=== PATIENT | male | born 1975 ===

== ENCOUNTER 2017-02-17 07:20 | Emergency (ER) | payer OTHER ==
--- NOTE | 2017-02-17 07:31 | C.PDOC ---
History Of Present Illness 41-year-old male, is brought to the ED, picked up by EMS, after being found outside, intoxicated. The patient states he is homeless, and admits to drinking daily. Last drink was last night. States that he fell last night and skinned his knees. Patient is also complaining of two-day duration of left-sided chest pain. Pain is non-exertional, non-radiating and constant. Denies shortness of breath, nausea/vomiting, fevers, chills, dizziness, back pain, or any other associated symptoms. No other complaints at this time. Time Seen by Provider: 02/17/17 07:28 Chief Complaint (Nursing): Substance Abuse History Per: Patient, EMS History/Exam Limitations: no limitations Onset/Duration Of Symptoms: Days Current Symptoms Are (Timing): Still Present Severity: Moderate Past Medical History Reviewed: Historical Data, Nursing Documentation, Vital Signs Vital Signs: Last Vital Signs Temp 98.2 F 02/17/17 12:20 Pulse 81 02/17/17 12:20 Resp 16 02/17/17 12:20 BP 133/70 02/17/17 12:20 Pulse Ox 100 02/17/17 12:20 - Medical History PMH: HTN, Seizures - [facility] Procedures REPAIR TONGUE, EXTERNAL APPROACH (01/19/16) Family History: States: No Known Family Hx - Social History Hx Alcohol Use: Yes Hx Substance Use: No - Immunization History Hx Tetanus Toxoid Vaccination: No Hx Influenza Vaccination: No Hx Pneumococcal Vaccination: No Review Of Systems Constitutional: Negative for: Fever Cardiovascular: Positive for: Chest Pain Respiratory: Negative for: Shortness of Breath Gastrointestinal: Negative for: Vomiting Neurological: Negative for: Weakness, Numbness, Headache, Dizziness Physical Exam - Physical Exam Appears: Non-toxic, No Acute Distress Skin: Warm, Dry Head: Atraumatic, Normacephalic Eye(s): bilateral: PERRL, EOMI Oral Mucosa: Moist Tongue: No Swelling Lips: No Swelling, No Laceration Neck: Normal ROM, No Midline Cervical Tenderness Chest: No Tenderness Cardiovascular: Rhythm Regular, No Murmur Respiratory: Normal Breath Sounds, No Decreased Breath Sounds, No Accessory Muscle Use, No Rales, No Rhonchi, No Wheezing Gastrointestinal/Abdominal: Soft, No Tenderness Back: No Vertebral Tenderness Extremity: No Deformity, Other (Superficial abrasions to B/L knees w/ mild swelling over left patella. ROM WNL.) Pulses: Left Dorsalis Pedis: Normal, Right Dorsalis Pedis: Normal Neurological/Psych: Oriented x3, Normal Motor, Normal Sensation, Other (no focal deficits) ED Course And Treatment - Laboratory Results Result Diagrams: 02/17/17 08:10 02/17/17 08:10 - Radiology CXR: Interpreted by Me, Viewed By Me CXR Interpretation: Yes: No Acute Disease - CT Scan/US Left knee CT Other Rad Studies (CT/US): Read By Radiologist, Radiology Report Reviewed CT/US Interpretation: FINDINGS: Prepatellar, infrapatellar soft tissue swelling. Swelling is primarily midline and medially. Again note is made of 2 well corticated osseous excrescence is laterally. These are visualized on plain film radiographs is well. Small well corticated osseous excrescence is adjacent to the medial femoral condyles likely the sequela of prior trauma. IMPRESSION: Pre and peripatellar soft tissue swelling. Well corticated osseous excrescence (2) adjacent to the lateral aspect of the patella. Although likely the sequela of prior trauma in the appropriate clinical setting acute fracture or Ree fracture should be considered. Medical Decision Making Medical Decision Making: EKG Rate 75bpm Rhythm NSR Interpret Normal [place]. Normal intervals. No acute ischemia. knee immob crutches ortho follow up the pt is ambulatory with steady gait, a&ox3, clinically NOT intoxicated prior to dc. PROCEDURE: CT left knee HISTORY: fall knee pain abnormal xr COMPARISON: February 17, 2017. Plain film radiographs TECHNIQUE: 2.5 mm axial acquisition and display. Coronal and sagittal reconstructions. Dose report (mGy-cm): 584.80 3D volume rendering images. FINDINGS: Prepatellar, infrapatellar soft tissue swelling. Swelling is primarily midline and medially. Again note is made of 2 well corticated osseous excrescence is laterally. These are visualized on plain film radiographs is well. Small well corticated osseous excrescence is adjacent to the medial femoral condyles likely the sequela of prior trauma. IMPRESSION: Pre and peripatellar soft tissue swelling. Well corticated osseous excrescence (2) adjacent to the lateral aspect of the patella. Although likely the sequela of prior trauma in the appropriate clinical setting acute fracture or Ree fracture should be considered. Disposition - Disposition Referrals: [facility] [Outside] Jabier Sherwood MD [Staff Provider] - Disposition: HOME/ ROUTINE Disposition Time: 11:37 Condition: STABLE Additional Instructions: Please follow up in the clinic and also with the orthopedic doctor. Return to the ER for any worsening symptoms or for any other concerns. Forms: Gen Discharge Inst Indonesian Print Language: BENGALI - Clinical Impression Clinical Impression: Alcohol abuse, Knee injury - Scribe Statement The provider has reviewed the documentation as recorded by the Beto Ortiz All medical record entries made by the Malikaibluzma were at my direction and personally dictated by me. I have reviewed the chart and agree that the record accurately reflects my personal performance of the history, physical exam, medical decision making, and the department course for this patient. I have also personally directed, reviewed, and agree with the discharge instructions and disposition.
[2017-02-17 07:35] VITALS: RESP 16
[2017-02-17 08:20] LABS: BASO # 0.1 K/uL (0.0-0.2); EOS # 0.1 K/uL (0.0-0.7); EOS % 0.8 % (0.0-4.0); HEMATOCRIT 34.2 % (35.0-51.0); LYMPH # 0.8 K/uL (1.0-4.3); LYMPH % 13.3 % (20.0-40.0); MEAN CELL VOLUME 91.5 fL (80.0-94.0); MEAN CORPUSCULAR HEMOGLOBIN 30.7 pg (27.0-31.0); MEAN CORPUSCULAR HGB CONC 33.6 g/dL (33.0-37.0); MEAN PLATELET VOLUME 9.2 fL (7.2-11.7); MONO # 0.4 K/uL (0.0-0.8); MONO % 6.7 % (0.0-10.0); RED CELL DISTRIBUTION WIDTH 14.5 % (11.5-14.5); WHITE BLOOD COUNT 6.4 K/uL (4.8-10.8)
[2017-02-17 08:22] LABS: CHLORIDE 94 mmol/L (98-107)
[2017-02-17 08:23] LABS: POTASSIUM 3.3 mmol/L (3.6-5.2); SODIUM 133 mmol/L (132-148)
[2017-02-17 08:25] LABS: ALB/GLOB RATIO 1.4 (1.0-2.1); AST/SGOT 154 U/L (17-59); BILIRUBIN,TOTAL 0.8 mg/dL (0.2-1.3); CARBON DIOXIDE 27 mmol/L (22-30); GFR AFRICAN-AMERICAN > 60; TOTAL PROTEIN 7.5 g/dL (6.3-8.3)
[2017-02-17 08:26] LABS: ALKALINE PHOSPHATASE 125 U/L (38-126); ALT/SGPT 88 U/L (21-72); BLOOD UREA NITROGEN 10 mg/dL (9-20); CALCIUM 8.7 mg/dl (8.6-10.4); GLUCOSE,RANDOM 159 mg/dL (75-110)
--- NOTE | 2017-02-17 09:47 | RAD ---
HISTORY: Chest pain. Portable semi erect 07:45. COMPARISON: 06/26/2016. FINDINGS: LUNGS: No active pulmonary disease. PLEURA: No significant pleural effusion identified, no pneumothorax apparent. CARDIOVASCULAR: Normal. OSSEOUS STRUCTURES: No significant abnormalities. VISUALIZED UPPER ABDOMEN: Normal. OTHER FINDINGS: None. IMPRESSION: No active disease. No significant interval change compared to the prior examination(s).
--- NOTE | 2017-02-17 09:49 | RAD ---
PROCEDURE: Left Knee Radiographs. HISTORY: Pain. COMPARISON: None. FINDINGS: BONES: No acute fracture. Well corticated osseous structures adjacent to the main patella/bipartite patella. Small osseous fragment well corticated 2 x 4 mm adjacent to the medial femoral condyles. JOINTS: Normal. No osteoarthritis. JOINT EFFUSION: None. OTHER FINDINGS: Prepatellar soft tissue swelling. IMPRESSION: Soft tissue swelling without acute articular or osseous abnormality. 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 Specifically to smaller well corticated osseous fragments adjacent to the lateral aspect of the patella. If these findings are discordant with at clinically suspected CT is the recommended procedure of choice to exclude patellar fracture.
--- NOTE | 2017-02-17 11:38 | CT ---
PROCEDURE: CT left knee HISTORY: fall knee pain abnormal xr COMPARISON: February 17, 2017. Plain film radiographs TECHNIQUE: 2.5 mm axial acquisition and display. Coronal and sagittal reconstructions. Dose report (mGy-cm): 584.80 3D volume rendering images. FINDINGS: Prepatellar, infrapatellar soft tissue swelling. Swelling is primarily midline and medially. Again note is made of 2 well corticated osseous excrescence is laterally. These are visualized on plain film radiographs is well. Small well corticated osseous excrescence is adjacent to the medial femoral condyles likely the sequela of prior trauma. IMPRESSION: Pre and peripatellar soft tissue swelling. Well corticated osseous excrescence (2) adjacent to the lateral aspect of the patella. Although likely the sequela of prior trauma in the appropriate clinical setting acute fracture or Ree fracture should be considered.
[2017-02-17 12:21] VITALS: BP 133/70; PULSE 81; TEMP 98.2; O2SAT 100
--- NOTE | 2017-02-20 12:21 | CARD ---
APPROVED REPORT EKG Measurement Heart [id number] <Conclusion> Normal sinus rhythm Normal ECG
== END 2017-02-17 12:20 | disposition home or self-care (01) ==
LOC: C.ER 07:20
DX: F10.10 Alcohol abuse, uncomplicated (principal); Y90.9 Presence of alcohol in blood, level not specified; S89.92XA Unspecified injury of left lower leg, initial encounter; S89.91XA Unspecified injury of right lower leg, initial encounter; W19.XXXA Unspecified fall, initial encounter; Y93.9 Activity, unspecified; Y92.9 Unspecified place or not applicable

== ENCOUNTER 2017-02-17 14:57 | Emergency (ER) | payer OTHER ==
[2017-02-17 15:04] VITALS: BMI 24.1
[2017-02-17 15:07] VITALS: O2SAT 96
[2017-02-17] MEDS ORDERED: Lidocaine 2% Inj (20ml) INFIL ONE (15:31)
[2017-02-17] MEDS ORDERED: Lidocaine 2% Inj (20ml) ONE (15:34)
--- NOTE | 2017-02-17 15:51 | C.PDOC ---
History Of Present Illness The patient, a 41 y/o male, was recently discharge from [facility] after being evaluated for acute alcohol intoxication. Patient has now returned to the ED stating "On my way home, I tripped over my knee immobilizer, fell, and bit my tongue." Patient notes some bleeding from his tongue and is constantly spitting up bloody sputum. Otherwise, patient denies LOC, syncope, headache, vision change, drooling, trismus, neck pain, nausea, vomiting, denies deformity or pain to B?L UEs and LEs. Ambulate to ED, knee immobilizer noted to Right knee, not in any apparent distress.. Time Seen by Provider: 02/17/17 15:11 Chief Complaint (Nursing): Abnormal Skin Integrity History Per: Patient History/Exam Limitations: no limitations Onset/Duration Of Symptoms: Hrs Current Symptoms Are (Timing): Still Present Quality Of Symptoms: Painful Additional History Per: Patient Past Medical History Reviewed: Historical Data, Nursing Documentation, Vital Signs Vital Signs: Last Vital Signs Temp 98 F 02/17/17 16:05 Pulse 97 H 02/17/17 16:05 Resp 20 02/17/17 16:05 BP 136/86 02/17/17 16:05 Pulse Ox 96 02/17/17 16:29 - Medical History PMH: HTN, Seizures Surgical History: No Surg Hx - [facility] Procedures REPAIR TONGUE, EXTERNAL APPROACH (01/19/16) Family History: States: Unknown Family Hx - Social History Hx Alcohol Use: Yes Hx Substance Use: No - Immunization History Hx Tetanus Toxoid Vaccination: No Hx Influenza Vaccination: No Hx Pneumococcal Vaccination: No Review Of Systems Except As Marked, All Systems Reviewed And Found Negative. Eyes: Negative for: Vision Change ENT: Positive for: Other (+accidental bite to tongue with some bleeding noted) Gastrointestinal: Negative for: Vomiting Musculoskeletal: Negative for: Neck Pain Physical Exam - Physical Exam Appears: Well, Non-toxic, No Acute Distress Skin: Normal Color, Warm, No Rash Head: Atraumatic, Normacephalic Eye(s): bilateral: PERRL Ear(s): Bilateral: Normal Nose: No Discharge, No Epistaxis, No Deformity, No Tenderness Oral Mucosa: Moist, No Drooling, No Trismus Tongue: Laceration (Left side mid 1/3 tongue C-shape laceration 1cm length, mild bloody oozing noted.) Lips: Normal Appearing Teeth: Caries Gingiva: No Abscess Throat: No Erythema, No Exudate, No Drooling Neck: Supple Extremity: No Pedal Edema, Other (Right knee immobilizer noted) Neurological/Psych: Oriented x3, Normal Speech, Normal Motor, Normal Sensation, Normal Reflexes ED Course And Treatment O2 Sat by Pulse Oximetry: 96 (on RA) Pulse Ox Interpretation: Normal Progress Note: On re-eavluation, pt is afebrile, hemodynamicaly stable. AAO#3, not in any apaprent distress. Ambulatory in ED with stable gait. Head: AT/NC. ENT: laceration to tongue noted, repaired w/sutures. Neck: (-) midline tenderness. Neurologicaly intact. Laceration repaired. Abx given. tetanus UTD. Pt advised on wound care. Advised OBS 48 hours for any sign of head injury-return to ED at any time if any new changes or any sign of infection. ref. to F/u with PMD and ENT in 2-3 days for re-eavl. Laceration - Laceration Repair Tongue laceration Wound Length (In cm): 1cm Description Of Wound: Irregular (C-shape) Anesthesia: Lidocaine 2% Wound Examination: Irrigated With Saline, No FB With Wound Exploration Wound Closure: Suture (#3) Suture Technique And Material Used: Interrupted, Chromic (4-0) Wound Complexity: Simple Disposition Counseled Patient/Family Regarding: Diagnosis, Need For Followup - Disposition Referrals: [facility] [Outside] Disposition: HOME/ ROUTINE Disposition Time: 15:51 Condition: STABLE Additional Instructions: Oral hygiene, wash mouth with Listerine Follow up with PMD or ED in 2 days for wound check. return to ED if any worsening or new changes. Prescriptions: Amoxicillin/Clavulanate [Augmentin 875 MG-125 MG] 1 tab PO BID #14 tab Instructions: Care For Your Absorbable Stitches (ED), Facial Laceration (ED) - Clinical Impression Clinical Impression: Tongue laceration - PA / CHEF CONCIERGE / Resident Statement MD/DO has reviewed & agrees with the documentation as recorded. - Scribe Statement The provider has reviewed the documentation as recorded by the Scribe (Evelin Doyle) All medical record entries made by the Scribe were at my direction and personally dictated by me. I have reviewed the chart and agree that the record accurately reflects my personal performance of the history, physical exam, medical decision making, and the department course for this patient. I have also personally directed, reviewed, and agree with the discharge instructions and disposition.
[2017-02-17] MEDS ORDERED: Amoxicillin-Clav 875-125 mg Tab PO STA (15:56)
[2017-02-17] MEDS ORDERED: Amoxicillin-Clav 875-125 mg Tab PO ONE (16:00)
[2017-02-17 16:06] VITALS: BP 136/86; PULSE 97; RESP 20; TEMP 98
== END 2017-02-17 16:06 | disposition home or self-care (01) ==
LOC: C.ER 14:57
DX: S01.512A Laceration without foreign body of oral cavity, initial encounter (principal); W01.0XXA Fall on same level from slipping, tripping and stumbling without subsequent striking against object, initial encounter; Y93.89 Activity, other specified; Y92.89 Other specified places as the place of occurrence of the external cause

== ENCOUNTER 2017-04-23 08:59 | Observation (INO) | payer OTHER ==
[2017-04-23 08:59] VITALS: BMI 24.1
[2017-04-23] MEDS ORDERED: Multivitamin (MVI) 10 ML, Thiamine 100 MG, Folic Acid 1 MG in Sodium Chloride 0.9% 1,00... IV ONE (09:18)
[2017-04-23 09:47] LABS: BASO # 0.1 K/uL (0.0-0.2); BASO % 1.9 % (0.0-2.0); EOS # 0.1 K/uL (0.0-0.7); EOS % 0.8 % (0.0-4.0); HEMATOCRIT 36.5 % (35.0-51.0); LYMPH # 1.9 K/uL (1.0-4.3); LYMPH % 26.9 % (20.0-40.0); MEAN CORPUSCULAR HEMOGLOBIN 31.2 pg (27.0-31.0); MEAN CORPUSCULAR HGB CONC 32.9 g/dL (33.0-37.0); MEAN PLATELET VOLUME 9.1 fL (7.2-11.7); MONO # 0.6 K/uL (0.0-0.8); MONO % 8.1 % (0.0-10.0); NRBC % 0.1 % (0.0-2.0); RED CELL DISTRIBUTION WIDTH 14.4 % (11.5-14.5); WHITE BLOOD COUNT 7.2 K/uL (4.8-10.8)
[2017-04-23 09:49] LABS: MEAN CELL VOLUME 94.8 fL (80.0-94.0)
[2017-04-23 09:55] LABS: CHLORIDE 92 mmol/L (98-107); SODIUM 135 mmol/L (132-148)
[2017-04-23 09:56] LABS: POTASSIUM 3.2 mmol/L (3.6-5.2)
[2017-04-23 09:58] LABS: ALKALINE PHOSPHATASE 156 U/L (38-126); ALT/SGPT 57 U/L (21-72); AST/SGOT 125 U/L (17-59); BILIRUBIN,TOTAL 0.9 mg/dL (0.2-1.3); BLOOD UREA NITROGEN 6 mg/dL (9-20); CARBON DIOXIDE 16 mmol/L (22-30); GFR AFRICAN-AMERICAN > 60; GLUCOSE,RANDOM 159 mg/dL (75-110); TOTAL PROTEIN 8.5 g/dL (6.3-8.3)
[2017-04-23 09:59] LABS: ALCOHOL SERUM < 10 mg/dl (0-10); CALCIUM 8.9 mg/dl (8.6-10.4)
--- NOTE | 2017-04-23 11:02 | C.PDOC ---
History Of Present Illness 41 y/o male brought to ED by EMS for public ETOH intoxication and complaints of headache. At ED patient states he feels tremulous and admits to drinking today. Pain is rated a 2/10 and denies fever, chills, n/v/d or any other complaints at this time. Time Seen by Provider: 04/23/17 09:17 Chief Complaint (Nursing): Substance Abuse History Per: Patient, EMS History/Exam Limitations: intoxication Onset/Duration Of Symptoms: Hrs Current Symptoms Are (Timing): Still Present Modifying Factor(s): Alcohol Past Medical History Reviewed: Historical Data, Nursing Documentation, Vital Signs Vital Signs: Last Vital Signs Temp 98.6 F 04/23/17 18:41 Pulse 79 04/23/17 18:41 Resp 16 04/23/17 18:41 BP 137/84 04/23/17 18:41 Pulse Ox 99 04/23/17 18:41 - Medical History PMH: HTN, Seizures - [facility] Procedures REPAIR TONGUE, EXTERNAL APPROACH (01/19/16) Family History: States: Unknown Family Hx - Social History Hx Alcohol Use: Yes Hx Substance Use: No - Immunization History Hx Tetanus Toxoid Vaccination: No Hx Influenza Vaccination: No Hx Pneumococcal Vaccination: No Review Of Systems Except As Marked, All Systems Reviewed And Found Negative. Constitutional: Negative for: Fever, Chills Gastrointestinal: Negative for: Nausea, Vomiting, Diarrhea Neurological: Positive for: Headache Physical Exam - Physical Exam Appears: Unkempt, Other (Cooperative, disheveled, Malodorous ) Skin: Warm Head: Atraumatic, Normacephalic Eye(s): bilateral: Normal Inspection, EOMI Oral Mucosa: Moist Throat: Normal, No Erythema Respiratory: Normal Breath Sounds, No Rales, No Rhonchi, No Wheezing Extremity: Capillary Refill (<2 seconds), Other (Tremors to both hands) Neurological/Psych: Oriented x3 Gait: Unsteady ED Course And Treatment - Laboratory Results Result Diagrams: 04/23/17 09:41 04/23/17 09:41 O2 Sat by Pulse Oximetry: 95 (RA) ED OBSERVATION Date of observation admission: 04/23/17 Time of observation admission: 11:01 - Observation admission statement Patient is being placed in observation because:: ETOH Intoxication - Goals of Observation Goals of observation are:: Patient still symptomatic. - Progress Note Progress Note: 04/23/17 11:02 patient still symptomatic 04/23/17 15:50 Patient evaluated, very tremulous, unable to ambulate. 04/23/17 18:44 patient awake, alert, ambulating Disposition - Disposition Disposition: HOME/ ROUTINE Disposition Time: 18:44 Condition: GUARDED - Clinical Impression Clinical Impression: Alcohol abuse - Scribe Statement The provider has reviewed the documentation as recorded by the Beto Macdonald All medical record entries made by the Beto were at my direction and personally dictated by me. I have reviewed the chart and agree that the record accurately reflects my personal performance of the history, physical exam, medical decision making, and the department course for this patient. I have also personally directed, reviewed, and agree with the discharge instructions and disposition.
[2017-04-23 12:59] LABS: URINE BILIRUBIN NEGATIVE (NEGATIVE); URINE BLOOD 1+ (NEGATIVE); URINE COLOR Yellow (YELLOW); URINE GLUCOSE (UA) 1+ mg/dL (Normal); URINE KETONE TRACE mg/dL (NEGATIVE); URINE LEUKOCYTE ESTERASE TRACE Leu/uL (Negative); URINE PROTEIN 2+ mg/dL (NEGATIVE); URINE UROBILINOGEN NORMAL mg/dL (0.2-1.0); WBC URINE 1 /hpf (0-5)
[2017-04-23 13:24] LABS: RBC URINE 1 /hpf (0-3); URINE BACTERIA RARE (<OCC)
[2017-04-23 18:42] VITALS: BP 137/84; PULSE 79; RESP 16; TEMP 98.6
[2017-04-23 18:45] VITALS: O2SAT 95
== END 2017-04-23 18:48 | disposition home or self-care (01) ==
LOC: C.ER 08:59 → C.9OBSV 10:36
PROVIDERS: ADMIT Emergency Medicine; ATTEND Emergency Medicine
DX: F10.129 Alcohol abuse with intoxication, unspecified (principal); I10 Essential (primary) hypertension; Y90.9 Presence of alcohol in blood, level not specified
CPT/HCPCS: 80053; 81001; 85025; 96365; 96366; 96375; 96376; 99285; G0378; G0480; J2060; J3411; J7040

== ENCOUNTER 2017-07-05 22:18 | Inpatient (IN) | payer MEDICAID, OTHER ==
[2017-07-05 22:19] VITALS: BMI 24.1
--- NOTE | 2017-07-05 23:02 | C.PDOC ---
History Of Present Illness 42 year old male who presents to the ER with a complaint of intermittent chest pain since approximately 15:00, associated with pain on respiration. Denies ETOH use today, fever, or chills. Time Seen by Provider: 07/05/17 23:00 Chief Complaint (Nursing): Chest Pain History Per: Patient History/Exam Limitations: no limitations Onset/Duration Of Symptoms: Hrs Current Symptoms Are (Timing): Still Present Associated Symptoms: Other (Pain w/ respiration). denies: Nausea, Dyspnea, Diaphoresis, Syncope Modifying Factors: None Exacerbating Factors: None Alleviating Factors: None Recent travel outside of the [place]: No Past Medical History Reviewed: Historical Data, Nursing Documentation, Vital Signs Vital Signs: Last Vital Signs Temp 97.3 F L 07/06/17 05:00 Pulse 67 07/06/17 04:30 Resp 16 07/06/17 04:30 BP 112/74 07/06/17 04:30 Pulse Ox 99 07/06/17 04:40 - Medical History PMH: HTN, Seizures Surgical History: No Surg Hx - [facility] Procedures REPAIR TONGUE, EXTERNAL APPROACH (01/19/16) Family History: States: Unknown Family Hx - Social History Hx Alcohol Use: Yes Hx Substance Use: No - Immunization History Hx Tetanus Toxoid Vaccination: No Hx Influenza Vaccination: No Hx Pneumococcal Vaccination: No Review Of Systems Constitutional: Negative for: Fever, Chills Cardiovascular: Positive for: Chest Pain Respiratory: Positive for: Other (Pain with respiration). Negative for: Cough Gastrointestinal: Negative for: Nausea, Vomiting Skin: Negative for: Rash Physical Exam - Physical Exam Appears: Non-toxic, Unkempt Skin: Normal Color, Warm, Dry Head: Atraumatic, Normacephalic Oral Mucosa: Moist Neck: Normal, No Supple Chest: Symmetrical Cardiovascular: Rhythm Regular Respiratory: Normal Breath Sounds, No Rales, No Rhonchi, No Wheezing Gastrointestinal/Abdominal: Soft, No Tenderness Neurological/Psych: Oriented x3, Normal Speech, Normal Cognition, Other ( Tremulous) ED Course And Treatment - Laboratory Results Result Diagrams: 07/05/17 23:10 07/05/17 23:10 ECG: Interpreted By Me, Viewed By Me ECG Rhythm: Sinus Rhythm ECG Interpretation: Normal Rate From EC O2 Sat by Pulse Oximetry: 99 (Room air) Pulse Ox Interpretation: Normal Progress Note: While awaiting labs pt became increasingly agitated,more tremulous.Began having visual hallucination.I am concerned pt is going into DT's Medical Decision Making Medical Decision Making: Plan: * EKG * CXR * Blood work * Ativan Disposition - Disposition Disposition: HOSPITALIZED Disposition Time: 01:35 Condition: SERIOUS - Clinical Impression Clinical Impression: Alcohol withdrawal delirium - Scribe Statement The provider has reviewed the documentation as recorded by the Scribe Gerhard French All medical record entries made by the Malikaibe were at my direction and personally dictated by me. I have reviewed the chart and agree that the record accurately reflects my personal performance of the history, physical exam, medical decision making, and the department course for this patient. I have also personally directed, reviewed, and agree with the discharge instructions and disposition.
[2017-07-05 23:13] LABS: BASO # 0.1 K/uL (0.0-0.2); BASO % 1.6 % (0.0-2.0); EOS # 0.2 K/uL (0.0-0.7); HEMATOCRIT 36.4 % (35.0-51.0); LYMPH # 1.8 K/uL (1.0-4.3); LYMPH % 30.7 % (20.0-40.0); MEAN CORPUSCULAR HEMOGLOBIN 31.5 pg (27.0-31.0); MEAN CORPUSCULAR HGB CONC 33.5 g/dL (33.0-37.0); MEAN PLATELET VOLUME 9.2 fL (7.2-11.7); MONO # 0.6 K/uL (0.0-0.8); MONO % 10.3 % (0.0-10.0); NRBC % 0.1 % (0.0-2.0); RED CELL DISTRIBUTION WIDTH 13.5 % (11.5-14.5); WHITE BLOOD COUNT 5.9 K/uL (4.8-10.8)
[2017-07-05 23:22] LABS: CHLORIDE 101 mmol/L (98-107)
[2017-07-05 23:23] LABS: POTASSIUM 4.1 mmol/L (3.6-5.2); SODIUM 135 mmol/L (132-148)
[2017-07-05 23:25] LABS: BILIRUBIN,TOTAL 0.9 mg/dL (0.2-1.3); CARBON DIOXIDE 21 mmol/L (22-30); GFR AFRICAN-AMERICAN > 60
[2017-07-05 23:26] LABS: ALKALINE PHOSPHATASE 157 U/L (38-126); ALT/SGPT 117 U/L (21-72); AST/SGOT 181 U/L (17-59); BLOOD UREA NITROGEN 13 mg/dL (9-20); CALCIUM 9.1 mg/dl (8.6-10.4); GLUCOSE,RANDOM 127 mg/dL (75-110); TOTAL PROTEIN 9.2 g/dL (6.3-8.3)
[2017-07-06] MEDS ORDERED: Sodium Chloride 0.9% 1,000 ML IV ONE (01:14)
[2017-07-06] MEDS ORDERED: Folic Acid 1 MG, Thiamine 100 MG, Multivitamin (MVI) 10 ML in Dextrose 5% In Water 1,00... IV SCH (01:30)
[2017-07-06] MEDS ORDERED: Folic Acid 1 MG, Thiamine 100 MG, Multivitamin (MVI) 10 ML in Dextrose 5% In Water 1,00... IV ONE (01:45)
[2017-07-06 02:06] LABS: URINE BILIRUBIN NEGATIVE (NEGATIVE); URINE BLOOD NEGATIVE (NEGATIVE); URINE COLOR Yellow (YELLOW); URINE GLUCOSE (UA) NORMAL (Normal); URINE KETONE NEGATIVE (NEGATIVE); URINE LEUKOCYTE ESTERASE NEG Leu/uL (Negative); URINE PROTEIN 2+ mg/dL (NEGATIVE); WBC URINE < 1 /hpf (0-5)
[2017-07-06] MEDS ORDERED: Thiamine 100 mg/ml Inj IV ONE (03:05)
[2017-07-06] MEDS: Dexmedetomidine Hydrochloride 200 MCG in Sodium Chloride 0.9% 48 ML IV PRN ×2 (03:37→13:57)
--- NOTE | 2017-07-06 03:39 | CP.PCM.CON ---
History of Present Illness - History of Present Illness History of Present Illness: 42 M with h/o alcoholism, came to ER walking c/o some chest pain. Patient was noticed to be tremulous and soon mental status got worse, patient was severely tremulous, having hallucinations, tachycardic, hypertensive, sweating, needed 4 point restraint in ER. Patient received 10mg iv ativan since arrival in ER with no response. Patient was given 5mg additional iv ativan by me without significant response in next 10 minutes. PMH of alcohol withdrawal, epistaxis PSH/allergies/FH/ Social history cannot be obtained Review of Systems - Review of Systems All systems: reviewed and no additional remarkable complaints except (HPI) Past Patient History - Infectious Disease Hx of Infectious Diseases: None - Past Social History Alcohol: > 2 Drinks/Day Drugs: Other (unknown) - CARDIAC Hx Hypertension: Yes - NEUROLOGICAL Hx Seizures: Yes - MUSCULOSKELETAL/RHEUMATOLOGICAL Hx Falls: No - PSYCHIATRIC Hx Substance Use: No - SURGICAL HISTORY Hx Surgeries: Yes Other/Comment: Abdominal Sx - ANESTHESIA Hx Anesthesia: Yes Hx Anesthesia Reactions: No Meds Allergies/Adverse Reactions: Allergies Allergy/AdvReac Type Severity Reaction Status Date / Time No Known Allergies Allergy Verified 04/23/17 09:14 - Medications Medications: Current Medications Folic Acid 1 mg/ Thiamine HCl 100 mg/ Multivitamins/Vitamin C 10 ml/ Dextrose 1 ,011.2 mls @ 100 mls/hr IV .Q10H7M ONE Stop: 07/06/17 11:51 Last Admin: 07/06/17 01:54 Dose: 100 mls/hr Dexmedetomidine HCl 200 mcg/ (Sodium Chloride) 50 mls @ 3.17 mls/hr IV TITR PRN ; Protocol; 0.2 MCG/KG/HR PRN Reason: Agitation Sodium Chloride (Sodium Chloride 0.9%) 1,000 mls @ 150 mls/hr IV .Q6H40M [facility] Ondansetron HCl (Zofran Inj) 4 mg IVP DAILY@ONCE PRN PRN Reason: Nausea/Vomiting Pantoprazole Sodium (Protonix Inj) 40 mg IVP DAILY [facility]ABLO Thiamine HCl (Vitamin B1 Inj) 100 mg IV DAILY [facility]RO PABLO Physical Exam - Additional Findings Additional findings: * HEENT JAE, diaphoresis * Neck supple * Chest Clear * CVS regular, tachycardia * PA soft, nt, bs present * Ext no edema * Skin lower turgor * [employer] full body tremors, awake but not able to focus, hallucinations Results - Vital Signs Recent Vital Signs: Last Vital Signs Temp 100.2 F H 07/05/17 22:37 Pulse 120 H 07/06/17 03:04 Resp 27 H 07/06/17 03:04 BP 122/84 07/06/17 03:04 Pulse Ox 99 07/06/17 03:04 - Labs Result Diagrams: 07/05/17 23:10 07/05/17 23:10 Labs: Laboratory Results - last 24 hr 07/05/17 07/05/17 07/05/17 22:51 23:10 23:10 WBC 5.9 RBC 3.87 L Hgb 12.2 Hct 36.4 MCV 94.0 MCH 31.5 H MCHC 33.5 RDW 13.5 Plt Count 155 MPV 9.2 Neut % (Auto) 53.4 Lymph % (Auto) 30.7 [place] % (Auto) 10.3 H Eos % (Auto) 4.0 Baso % (Auto) 1.6 Neut # 3.2 Lymph # 1.8 [place] # 0.6 Eos # 0.2 Baso # 0.1 Sodium 135 Potassium 4.1 Chloride 101 Carbon Dioxide 21 L Anion Gap 17 BUN 13 Creatinine 0.5 L Est GFR ( Amer) > 60 Est GFR (Non-Af Amer) > 60 POC Glucose (mg/dL) 137 H Random Glucose 127 H Calcium 9.1 Total Bilirubin 0.9 AST 181 H ALT 117 H D Alkaline Phosphatase 157 H Troponin I 0.0130 Total Protein 9.2 H Albumin 4.7 Globulin 4.5 H Albumin/Globulin Ratio 1.0 Urine Color Urine Clarity Urine pH Ur Specific [place] Urine Protein Urine Glucose (UA) Urine Ketones Urine Blood Urine Nitrate Urine Bilirubin Urine Urobilinogen Ur Leukocyte Esterase Urine WBC (Auto) Ur Squamous Epith Cells Urine Opiates Screen Urine Methadone Screen Ur Barbiturates Screen Ur Phencyclidine Scrn Ur Amphetamines Screen U Benzodiazepines Scrn U Oth Cocaine Metabols U Cannabinoids Screen Alcohol, Quantitative 07/05/17 07/06/17 07/06/17 23:56 01:57 01:57 WBC RBC Hgb Hct MCV MCH MCHC RDW Plt Count MPV Neut % (Auto) Lymph % (Auto) [place] % (Auto) Eos % (Auto) Baso % (Auto) Neut # Lymph # [place] # Eos # Baso # Sodium Potassium Chloride Carbon Dioxide Anion Gap BUN Creatinine Est GFR ( Amer) Est GFR (Non-Af Amer) POC Glucose (mg/dL) Random Glucose Calcium Total Bilirubin AST ALT Alkaline Phosphatase Troponin I Total Protein Albumin Globulin Albumin/Globulin Ratio Urine Color Yellow Urine Clarity Clear Urine pH 6.0 Ur Specific [place] 1.016 Urine Protein 2+ H Urine Glucose (UA) Normal Urine Ketones Negative Urine Blood Negative Urine Nitrate Negative Urine Bilirubin Negative Urine Urobilinogen 4.0 Ur Leukocyte Esterase Neg Urine WBC (Auto) < 1 Ur Squamous Epith Cells 4 Urine Opiates Screen Negative Urine Methadone Screen Negative Ur Barbiturates Screen Negative Ur Phencyclidine Scrn Negative Ur Amphetamines Screen Negative U Benzodiazepines Scrn Negative U Oth Cocaine Metabols Negative U Cannabinoids Screen Negative Alcohol, Quantitative < 10 07/06/17 02:21 WBC RBC Hgb Hct MCV MCH MCHC RDW Plt Count MPV Neut % (Auto) Lymph % (Auto) [place] % (Auto) Eos % (Auto) Baso % (Auto) Neut # Lymph # [place] # Eos # Baso # Sodium Potassium Chloride Carbon Dioxide Anion Gap BUN Creatinine Est GFR ( Amer) Est GFR (Non-Af Amer) POC Glucose (mg/dL) 93 Random Glucose Calcium Total Bilirubin AST ALT Alkaline Phosphatase Troponin I Total Protein Albumin Globulin Albumin/Globulin Ratio Urine Color Urine Clarity Urine pH Ur Specific [place] Urine Protein Urine Glucose (UA) Urine Ketones Urine Blood Urine Nitrate Urine Bilirubin Urine Urobilinogen Ur Leukocyte Esterase Urine WBC (Auto) Ur Squamous Epith Cells Urine Opiates Screen Urine Methadone Screen Ur Barbiturates Screen Ur Phencyclidine Scrn Ur Amphetamines Screen U Benzodiazepines Scrn U Oth Cocaine Metabols U Cannabinoids Screen Alcohol, Quantitative Assessment & Plan - Assessment and Plan (Free Text) Assessment: * Alcohol withdrawal DTs not responded to about 10mg of ativan last 2 hrs * Alcoholism * Clinical dehydration * Alcoholic hepatitis Plan: * Sedation with precedex * IV thiamine, hydration * Aspiration precautions * GI and DVT prophylaxis * Remove restraints as th patient is calm * Admit to icu. * See orders for detail.
[2017-07-06] MEDS ORDERED: Sodium Chloride 0.9% 1,000 ML ONE (03:56)
[2017-07-06] MEDS: Sodium Chloride 0.9% 1,000 ML IV SCH ×6 (03:57→23:00)
--- NOTE | 2017-07-06 04:11 | CP.PCM.HP ---
<Salvatore Herron - Last Filed: 07/06/17 04:03> History of Present Illness - History of Present Illness History of Present Illness: Medicine H/P CC: Alcohol W/d HPI: Patient is a 42yo male who came walking into the ER with complaining of chest pain that appeared diaphoretic and tremulous. Patient admitted to being a heavy drinker and stated his last drink was about 1 day ago. Patients quickly became altered/obtunded and was clearly hallucinating both visually and auditory. He would rarely respond appropriately to questions. He became restless and was trying to climb off the bed. After many attempts to calm the patient, 4 point restraints were placed for the patients safety. He was given a total of 10mg Ativan IV at 2mg increments with no response. The patient was then given a 5mg dose again with no response. The patient was put on a precedex drip which finally gave him some relief. The patient was transported to the ICU. ROS: Unable to be obtained PMH: Unable to be obtained PSH: Unable to be obtained FH: Unable to be obtained SH: admits to drinking alcohol Meds: Unable to be obtained All: Unable to be obtained Present on Admission - Present on Admission Any Indicators Present on Admission: No History of DVT/PE: No History of Uncontrolled Diabetes: No Urinary Catheter: No Decubitus Ulcer Present: No History Surgical Site Infection Following: None Review of Systems - Review of Systems Systems not reviewed;Unavailable: Altered Mental Status - Constitutional Constitutional: As Per HPI - EENT Eyes: As Per HPI Ears: As Per HPI Nose/Mouth/Throat: As Per HPI - Cardiovascular Cardiovascular: As Per HPI - Respiratory Respiratory: As Per HPI - Gastrointestinal Gastrointestinal: As Per HPI - Genitourinary Genitourinary: As Per HPI - Reproductive: Male Reproductive:Male: As Per HPI - Musculoskeletal Musculoskeletal: As Per HPI - Integumentary Integumentary: As Per HPI - Neurological Neurological: As Per HPI - Psychiatric Psychiatric: As Per HPI - Endocrine Endocrine: As Per HPI - Hematologic/Lymphatic Hematologic: As Per HPI Past Patient History - Infectious Disease Hx of Infectious Diseases: None - Past Social History Alcohol: > 2 Drinks/Day Drugs: Other (unknown) - CARDIAC Hx Hypertension: Yes - NEUROLOGICAL Hx Seizures: Yes - MUSCULOSKELETAL/RHEUMATOLOGICAL Hx Falls: No - PSYCHIATRIC Hx Substance Use: No - SURGICAL HISTORY Hx Surgeries: Yes Other/Comment: Abdominal Sx - ANESTHESIA Hx Anesthesia: Yes Hx Anesthesia Reactions: No Meds Allergies/Adverse Reactions: Allergies Allergy/AdvReac Type Severity Reaction Status Date / Time No Known Allergies Allergy Verified 04/23/17 09:14 Physical Exam - Constitutional Appears: In Acute Distress, Combative, Agitated - Head Exam Head Exam: ATRAUMATIC, NORMAL INSPECTION, NORMOCEPHALIC - Eye Exam Eye Exam: EOMI. absent: Nystagmus Pupil Exam: Mydriatic. absent: Fixed, Irregular, Unequal - ENT Exam ENT Exam: Mucous Membranes Dry - Respiratory Exam Respiratory Exam: Clear to Auscultation Bilateral, NORMAL BREATHING PATTERN - Cardiovascular Exam Cardiovascular Exam: Tachycardia, REGULAR RHYTHM - GI/Abdominal Exam GI & Abdominal Exam: Normal Bowel Sounds, Soft. absent: Distended, Tenderness - Extremities Exam Extremities exam: Negative for: joint swelling, tenderness - Neurological Exam Neurological exam: Altered Additional comments: full body tremors - Psychiatric Exam Psychiatric exam: Agitated Additional comments: visual and auditory hallucinations - Skin Skin Exam: Diaphoretic Results - Vital Signs Recent Vital Signs: Last Vital Signs Temp 98.5 F 07/06/17 03:45 Pulse 80 07/06/17 03:56 Resp 16 07/06/17 03:56 BP 118/83 07/06/17 03:56 Pulse Ox 96 07/06/17 03:56 - Labs Result Diagrams: 07/05/17 23:10 07/05/17 23:10 Labs: Laboratory Results - last 24 hr 07/05/17 07/05/17 07/05/17 22:51 23:10 23:10 WBC 5.9 RBC 3.87 L Hgb 12.2 Hct 36.4 MCV 94.0 MCH 31.5 H MCHC 33.5 RDW 13.5 Plt Count 155 MPV 9.2 Neut % (Auto) 53.4 Lymph % (Auto) 30.7 [place] % (Auto) 10.3 H Eos % (Auto) 4.0 Baso % (Auto) 1.6 Neut # 3.2 Lymph # 1.8 [place] # 0.6 Eos # 0.2 Baso # 0.1 Sodium 135 Potassium 4.1 Chloride 101 Carbon Dioxide 21 L Anion Gap 17 BUN 13 Creatinine 0.5 L Est GFR ( Amer) > 60 Est GFR (Non-Af Amer) > 60 POC Glucose (mg/dL) 137 H Random Glucose 127 H Calcium 9.1 Total Bilirubin 0.9 AST 181 H ALT 117 H D Alkaline Phosphatase 157 H Troponin I 0.0130 Total Protein 9.2 H Albumin 4.7 Globulin 4.5 H Albumin/Globulin Ratio 1.0 Urine Color Urine Clarity Urine pH Ur Specific [place] Urine Protein Urine Glucose (UA) Urine Ketones Urine Blood Urine Nitrate Urine Bilirubin Urine Urobilinogen Ur Leukocyte Esterase Urine WBC (Auto) Ur Squamous Epith Cells Urine Opiates Screen Urine Methadone Screen Ur Barbiturates Screen Ur Phencyclidine Scrn Ur Amphetamines Screen U Benzodiazepines Scrn U Oth Cocaine Metabols U Cannabinoids Screen Alcohol, Quantitative 07/05/17 07/06/17 07/06/17 23:56 01:57 01:57 WBC RBC Hgb Hct MCV MCH MCHC RDW Plt Count MPV Neut % (Auto) Lymph % (Auto) [place] % (Auto) Eos % (Auto) Baso % (Auto) Neut # Lymph # [place] # Eos # Baso # Sodium Potassium Chloride Carbon Dioxide Anion Gap BUN Creatinine Est GFR ( Amer) Est GFR (Non-Af Amer) POC Glucose (mg/dL) Random Glucose Calcium Total Bilirubin AST ALT Alkaline Phosphatase Troponin I Total Protein Albumin Globulin Albumin/Globulin Ratio Urine Color Yellow Urine Clarity Clear Urine pH 6.0 Ur Specific [place] 1.016 Urine Protein 2+ H Urine Glucose (UA) Normal Urine Ketones Negative Urine Blood Negative Urine Nitrate Negative Urine Bilirubin Negative Urine Urobilinogen 4.0 Ur Leukocyte Esterase Neg Urine WBC (Auto) < 1 Ur Squamous Epith Cells 4 Urine Opiates Screen Negative Urine Methadone Screen Negative Ur Barbiturates Screen Negative Ur Phencyclidine Scrn Negative Ur Amphetamines Screen Negative U Benzodiazepines Scrn Negative U Oth Cocaine Metabols Negative U Cannabinoids Screen Negative Alcohol, Quantitative < 10 07/06/17 02:21 WBC RBC Hgb Hct MCV MCH MCHC RDW Plt Count MPV Neut % (Auto) Lymph % (Auto) [place] % (Auto) Eos % (Auto) Baso % (Auto) Neut # Lymph # [place] # Eos # Baso # Sodium Potassium Chloride Carbon Dioxide Anion Gap BUN Creatinine Est GFR ( Amer) Est GFR (Non-Af Amer) POC Glucose (mg/dL) 93 Random Glucose Calcium Total Bilirubin AST ALT Alkaline Phosphatase Troponin I Total Protein Albumin Globulin Albumin/Globulin Ratio Urine Color Urine Clarity Urine pH Ur Specific [place] Urine Protein Urine Glucose (UA) Urine Ketones Urine Blood Urine Nitrate Urine Bilirubin Urine Urobilinogen Ur Leukocyte Esterase Urine WBC (Auto) Ur Squamous Epith Cells Urine Opiates Screen Urine Methadone Screen Ur Barbiturates Screen Ur Phencyclidine Scrn Ur Amphetamines Screen U Benzodiazepines Scrn U Oth Cocaine Metabols U Cannabinoids Screen Alcohol, Quantitative Assessment & Plan - Assessment and Plan (Free Text) Assessment: Alcohol withdrawal DTs * not responded to about 10mg of ativan last 2 hrs * Sedation with precedex * 0.7 mcg/kg - titrate as needed to maintain sedation * IV thiamine, hydration * Aspiration precautions * Remove restraints as the patient is calm * Admit to icu. Alcoholism * IV thiamine, hydration Clinical dehydration * IV thiamine, hydration Alcoholic hepatitis PPx * Aspiration precautions * GI and DVT prophylaxis - Date & Time Date: 07/06/17 Time: 04:14 <Rodolfo Tavera - Last Filed: 07/06/17 06:29> Results - Vital Signs Recent Vital Signs: Last Vital Signs Temp 97.3 F L 07/06/17 05:00 Pulse 67 07/06/17 04:30 Resp 16 07/06/17 04:30 BP 112/74 07/06/17 04:30 Pulse Ox 99 07/06/17 05:14 - Labs Result Diagrams: 07/05/17 23:10 07/05/17 23:10 Labs: Laboratory Results - last 24 hr 07/05/17 07/05/17 07/05/17 22:51 23:10 23:10 WBC 5.9 RBC 3.87 L Hgb 12.2 Hct 36.4 MCV 94.0 MCH 31.5 H MCHC 33.5 RDW 13.5 Plt Count 155 MPV 9.2 Neut % (Auto) 53.4 Lymph % (Auto) 30.7 [place] % (Auto) 10.3 H Eos % (Auto) 4.0 Baso % (Auto) 1.6 Neut # 3.2 Lymph # 1.8 [place] # 0.6 Eos # 0.2 Baso # 0.1 Sodium 135 Potassium 4.1 Chloride 101 Carbon Dioxide 21 L Anion Gap 17 BUN 13 Creatinine 0.5 L Est GFR ( Amer) > 60 Est GFR (Non-Af Amer) > 60 POC Glucose (mg/dL) 137 H Random Glucose 127 H Calcium 9.1 Total Bilirubin 0.9 AST 181 H ALT 117 H D Alkaline Phosphatase 157 H Troponin I 0.0130 Total Protein 9.2 H Albumin 4.7 Globulin 4.5 H Albumin/Globulin Ratio 1.0 Urine Color Urine Clarity Urine pH Ur Specific [place] Urine Protein Urine Glucose (UA) Urine Ketones Urine Blood Urine Nitrate Urine Bilirubin Urine Urobilinogen Ur Leukocyte Esterase Urine WBC (Auto) Ur Squamous Epith Cells Urine Opiates Screen Urine Methadone Screen Ur Barbiturates Screen Ur Phencyclidine Scrn Ur Amphetamines Screen U Benzodiazepines Scrn U Oth Cocaine Metabols U Cannabinoids Screen Alcohol, Quantitative 07/05/17 07/06/17 07/06/17 23:56 01:57 01:57 WBC RBC Hgb Hct MCV MCH MCHC RDW Plt Count MPV Neut % (Auto) Lymph % (Auto) [place] % (Auto) Eos % (Auto) Baso % (Auto) Neut # Lymph # [place] # Eos # Baso # Sodium Potassium Chloride Carbon Dioxide Anion Gap BUN Creatinine Est GFR ( Amer) Est GFR (Non-Af Amer) POC Glucose (mg/dL) Random Glucose Calcium Total Bilirubin AST ALT Alkaline Phosphatase Troponin I Total Protein Albumin Globulin Albumin/Globulin Ratio Urine Color Yellow Urine Clarity Clear Urine pH 6.0 Ur Specific [place] 1.016 Urine Protein 2+ H Urine Glucose (UA) Normal Urine Ketones Negative Urine Blood Negative Urine Nitrate Negative Urine Bilirubin Negative Urine Urobilinogen 4.0 Ur Leukocyte Esterase Neg Urine WBC (Auto) < 1 Ur Squamous Epith Cells 4 Urine Opiates Screen Negative Urine Methadone Screen Negative Ur Barbiturates Screen Negative Ur Phencyclidine Scrn Negative Ur Amphetamines Screen Negative U Benzodiazepines Scrn Negative U Oth Cocaine Metabols Negative U Cannabinoids Screen Negative Alcohol, Quantitative < 10 07/06/17 02:21 WBC RBC Hgb Hct MCV MCH MCHC RDW Plt Count MPV Neut % (Auto) Lymph % (Auto) [place] % (Auto) Eos % (Auto) Baso % (Auto) Neut # Lymph # [place] # Eos # Baso # Sodium Potassium Chloride Carbon Dioxide Anion Gap BUN Creatinine Est GFR ( Amer) Est GFR (Non-Af Amer) POC Glucose (mg/dL) 93 Random Glucose Calcium Total Bilirubin AST ALT Alkaline Phosphatase Troponin I Total Protein Albumin Globulin Albumin/Globulin Ratio Urine Color Urine Clarity Urine pH Ur Specific [place] Urine Protein Urine Glucose (UA) Urine Ketones Urine Blood Urine Nitrate Urine Bilirubin Urine Urobilinogen Ur Leukocyte Esterase Urine WBC (Auto) Ur Squamous Epith Cells Urine Opiates Screen Urine Methadone Screen Ur Barbiturates Screen Ur Phencyclidine Scrn Ur Amphetamines Screen U Benzodiazepines Scrn U Oth Cocaine Metabols U Cannabinoids Screen Alcohol, Quantitative Assessment & Plan - Date & Time Date: 07/06/17 (I have seen and examined the patient. I agree with the findings and plan of care as documented by Dr. Herron. Patient with alcohol withdrawal with DTs. CIWA protocol with Ativan. Precedex added due to necessity. Thiamine and folate. IVF hydration. Fall and seizure precautions. Admit to ICU for close monitoring for acute changes.) Time: 06:27 Attending/Attestation - Attestation I have personally seen and examined this patient.: Yes I have fully participated in the care of the patient.: Yes I have reviewed all pertinent clinical information: Yes
--- NOTE | 2017-07-06 08:03 | RAD ---
PROCEDURE: CHEST RADIOGRAPH, 1 VIEW HISTORY: chest pain COMPARISON: None available. FINDINGS: LUNGS: Mild venous congestion. Mild patchy increased markings at the right lung base. PLEURA: No pneumothorax or pleural fluid seen. CARDIOVASCULAR: Normal. OSSEOUS STRUCTURES: No significant abnormalities. VISUALIZED UPPER ABDOMEN: Normal. OTHER FINDINGS: None. IMPRESSION: Mild venous congestion. Mild patchy increased markings at the right lung base.
[2017-07-06 09:44] LABS: BASO # 0.1 K/uL (0.0-0.2); BASO % 1.7 % (0.0-2.0); EOS # 0.2 K/uL (0.0-0.7); EOS % 5.5 % (0.0-4.0); HEMATOCRIT 35.3 % (35.0-51.0); LYMPH # 1.1 K/uL (1.0-4.3); LYMPH % 28.9 % (20.0-40.0); MEAN CELL VOLUME 94.1 fL (80.0-94.0); MEAN PLATELET VOLUME 8.9 fL (7.2-11.7); MONO # 0.4 K/uL (0.0-0.8); MONO % 10.5 % (0.0-10.0); NRBC % 0.1 % (0.0-2.0); RED CELL DISTRIBUTION WIDTH 13.8 % (11.5-14.5); WHITE BLOOD COUNT 3.8 K/uL (4.8-10.8)
[2017-07-06 10:10] LABS: CHLORIDE 107 mmol/L (98-107)
[2017-07-06 10:11] LABS: POTASSIUM 3.3 mmol/L (3.6-5.2); SODIUM 139 mmol/L (132-148)
[2017-07-06 10:13] LABS: ALKALINE PHOSPHATASE 93 U/L (38-126); ALT/SGPT 107 U/L (21-72); AST/SGOT 125 U/L (17-59); BILIRUBIN,TOTAL 0.8 mg/dL (0.2-1.3); BLOOD UREA NITROGEN 8 mg/dL (9-20); CARBON DIOXIDE 22 mmol/L (22-30); GFR AFRICAN-AMERICAN > 60; GLUCOSE,RANDOM 115 mg/dL (75-110); TOTAL PROTEIN 7.9 g/dL (6.3-8.3)
[2017-07-06 10:14] LABS: CALCIUM 8.5 mg/dl (8.6-10.4); MAGNESIUM 1.6 mg/dL (1.6-2.3); PHOSPHOROUS 4.4 mg/dL (2.5-4.5)
--- NOTE | 2017-07-06 11:14 | CT ---
PROCEDURE: CT HEAD WITHOUT CONTRAST. HISTORY: AMS COMPARISON: 06/26/2016 TECHNIQUE: Axial computed tomography images were obtained through the head/brain without intravenous contrast. Radiation dose: Total exam DLP = 982.82 mGy-cm. This CT exam was performed using one or more of the following dose reduction techniques: Automated exposure control, adjustment of the mA and/or kV according to patient size, and/or use of iterative reconstruction technique. FINDINGS: HEMORRHAGE: No intracranial hemorrhage. BRAIN: No mass effect or edema. No atrophy or chronic microvascular ischemic changes. VENTRICLES: Unremarkable. No hydrocephalus. CALVARIUM: Unremarkable. PARANASAL SINUSES: Mild chronic bilateral maxillary sinusitis. MASTOID AIR CELLS: Unremarkable as visualized. No inflammatory changes. OTHER FINDINGS: None. IMPRESSION: No intracranial mass, hemorrhage or evidence acute infarct. Mild bilateral chronic maxillary sinusitis. Otherwise unremarkable examination. On
[2017-07-06] MEDS: Magnesium Sulfate 1 gm in D5W 1 GM/100 ML BAG IVPB SCH ×2 (11:44→13:58)
--- NOTE | 2017-07-06 15:30 | CP.PCM.PN ---
Subjective - Date & Time of Evaluation Date of Evaluation: 07/06/17 Time of Evaluation: 13:00 - Subjective Subjective: Patient is arousable,trying to talk .able to tell his name.not to place and person. Objective - Vital Signs/Intake and Output Vital Signs (last 24 hours): Temp Pulse Resp BP Pulse Ox 97.3 F L 57 L 16 104/83 99 07/06/17 08:00 07/06/17 12:00 07/06/17 12:00 07/06/17 12:00 07/06/17 12:00 Intake and Output: 07/06/17 07/06/17 06:59 18:59 Intake Total 472.2 1556.3 Output Total 160 1170 Balance 312.2 386.3 - Medications Medications: Current Medications Chlordiazepoxide (Librium) 25 mg PO Q6 [facility]EDRO PABLO PRN Reason: Taper Stop: 07/10/17 17:59 Heparin Sodium (Porcine) (Heparin) 5,000 units SC Q12 [facility] Last Admin: 07/06/17 14:00 Dose: 5,000 units Dexmedetomidine HCl 200 mcg/ (Sodium Chloride) 50 mls @ 3.17 mls/hr IV TITR PRN ; Protocol; 0.2 MCG/KG/HR PRN Reason: Agitation Last Admin: 07/06/17 13:57 Dose: 0.4 mcg/kg/hr, 6.35 mls/hr Sodium Chloride (Sodium Chloride 0.9%) 1,000 mls @ 150 mls/hr IV .Q6H40M [facility] Last Admin: 07/06/17 11:41 Dose: 150 mls/hr Lorazepam (Ativan) 1 mg IVP Q4H PRN PRN Reason: Symptoms of alcohol withdrawl Ondansetron HCl (Zofran Inj) 4 mg IVP Q6 PRN PRN Reason: Nausea/Vomiting Pantoprazole Sodium (Protonix Inj) 40 mg IVP DAILY [facility] Last Admin: 07/06/17 10:31 Dose: 40 mg Thiamine HCl (Vitamin B1 Inj) 100 mg IV DAILY [facility] - Labs Labs: 07/06/17 09:36 07/06/17 09:36 - Constitutional Appears: Confused - Head Exam Head Exam: NORMAL INSPECTION - Eye Exam Eye Exam: Normal appearance - ENT Exam ENT Exam: Mucous Membranes Moist - Neck Exam Neck Exam: Normal Inspection - Respiratory Exam Respiratory Exam: Clear to Ausculation Bilateral, NORMAL BREATHING PATTERN - Cardiovascular Exam Cardiovascular Exam: REGULAR RHYTHM - GI/Abdominal Exam GI & Abdominal Exam: Soft, Normal Bowel Sounds - Exam External exam: NORMAL EXTERNAL EXAM - Extremities Exam Extremities Exam: Full ROM, Normal Capillary Refill. absent: Pedal Edema - Back Exam Back Exam: Full ROM, NORMAL INSPECTION - Neurological Exam Neurological Exam: Awake. absent: Oriented x3 - Psychiatric Exam Psychiatric exam: Flat Affect - Skin Skin Exam: Dry Assessment and Plan - Assessment and Plan (Free Text) Assessment: This is a 42 years old male with h/o alcoholism, came to ER walking with c/o some chest pain. Patient was noticed to be tremulous and soon mental status got worse.He became tachycardic, hypertensive, sweating,confused and hallucinating needed 4 point restraint in the ER. Patient received total of 15 mg iv ativan with no response. He was started on precedex and admitted to ICU by maintenance fitter last night. On examination he is with mittens restrain.Trying to answer questions but confused. Plan: 1. Alcohol DTs Continue precedex as per critical care continue librium and ativan PRN 2.Alcoholism and alcoholic hepatitis avoid nephrotoxic agents. 3.DVT prophylaxis-on heparin GI prophylaxis is on protonix 4.Hypokalemia-supplement
[2017-07-07] MEDS: Dexmedetomidine Hydrochloride 200 MCG in Sodium Chloride 0.9% 48 ML IV PRN
[2017-07-07] MEDS: Sodium Chloride 0.9% 1,000 ML IV SCH ×3 (05:00→12:35)
[2017-07-07 06:26] LABS: CHLORIDE 106 mmol/L (98-107)
[2017-07-07 06:27] LABS: BASO # 0.1 K/uL (0.0-0.2); BASO % 0.6 % (0.0-2.0); EOS # 0.2 K/uL (0.0-0.7); EOS % 1.5 % (0.0-4.0); HEMATOCRIT 33.4 % (35.0-51.0); LYMPH # 1.5 K/uL (1.0-4.3); LYMPH % 13.5 % (20.0-40.0); MEAN CELL VOLUME 93.6 fL (80.0-94.0); MEAN CORPUSCULAR HGB CONC 34.2 g/dL (33.0-37.0); MEAN PLATELET VOLUME 9.2 fL (7.2-11.7); MONO # 0.7 K/uL (0.0-0.8); MONO % 6.9 % (0.0-10.0); NRBC % 0.1 % (0.0-2.0); SODIUM 135 mmol/L (132-148); WHITE BLOOD COUNT 10.9 K/uL (4.8-10.8)
[2017-07-07 06:29] LABS: AST/SGOT 129 U/L (17-59); CARBON DIOXIDE 20 mmol/L (22-30); GFR AFRICAN-AMERICAN > 60
[2017-07-07 06:30] LABS: ALKALINE PHOSPHATASE 75 U/L (38-126); ALT/SGPT 78 U/L (21-72); BLOOD UREA NITROGEN 6 mg/dL (9-20); CALCIUM 7.9 mg/dl (8.6-10.4); GLUCOSE,RANDOM 80 mg/dL (75-110); MAGNESIUM 1.8 mg/dL (1.6-2.3); PHOSPHOROUS 3.7 mg/dL (2.5-4.5); TOTAL PROTEIN 8.3 g/dL (6.3-8.3)
[2017-07-07 06:37] LABS: POTASSIUM 5.7 mmol/L (3.6-5.2)
[2017-07-07 07:05] LABS: CHLORIDE 107 mmol/L (98-107); POTASSIUM 3.1 mmol/L (3.6-5.2); SODIUM 138 mmol/L (132-148)
[2017-07-07 07:08] LABS: BLOOD UREA NITROGEN 6 mg/dL (9-20); CARBON DIOXIDE 20 mmol/L (22-30); GFR AFRICAN-AMERICAN > 60
[2017-07-07 07:09] LABS: GLUCOSE,RANDOM 89 mg/dL (75-110)
--- NOTE | 2017-07-07 09:20 | CP.PCM.PN ---
Subjective - Date & Time of Evaluation Date of Evaluation: 07/07/17 Time of Evaluation: 08:30 - Subjective Subjective: No complain,Denies pain,alert oriented ,calm Objective - Vital Signs/Intake and Output Vital Signs (last 24 hours): Temp Pulse Resp BP Pulse Ox 98.5 F 53 L 15 125/74 99 07/07/17 04:00 07/07/17 06:20 07/07/17 06:20 07/07/17 05:52 07/07/17 06:20 Intake and Output: 07/07/17 07/07/17 06:59 18:59 Intake Total 1888 150 Output Total 1300 Balance 588 150 - Medications Medications: Current Medications Chlordiazepoxide (Librium) 25 mg PO Q6 [facility] PRN Reason: Taper Stop: 07/10/17 17:59 Last Admin: 07/07/17 06:19 Dose: 25 mg Folic Acid (Folic Acid) 1 mg PO DAILY [facility] Heparin Sodium (Porcine) (Heparin) 5,000 units SC Q12 [facility] Last Admin: 07/06/17 21:32 Dose: 5,000 units Sodium Chloride (Sodium Chloride 0.9%) 1,000 mls @ 150 mls/hr IV .Q6H40M [facility] Last Admin: 07/07/17 05:00 Dose: 150 mls/hr Potassium Chloride (Potassium Chloride 20 Meq/100 Ml) 20 meq in 100 mls @ 50 mls/hr IVPB ONCE ONE Stop: 07/07/17 10:27 Last Admin: 07/07/17 09:15 Dose: 50 mls/hr Lorazepam (Ativan) 1 mg IVP Q4H PRN PRN Reason: Symptoms of alcohol withdrawl Ondansetron HCl (Zofran Inj) 4 mg IVP Q6 PRN PRN Reason: Nausea/Vomiting Pantoprazole Sodium (Protonix Ec Tab) 40 mg PO DAILY [facility] Potassium Chloride (K-Dur 20 Meq Er Tab) 40 meq PO ONCE ONE Stop: 07/07/17 09:11 Thiamine HCl (Vitamin B1 Tab) 100 mg PO DAILY [facility] - Labs Labs: 07/07/17 06:13 07/07/17 06:44 - Constitutional Appears: Well, Non-toxic - Head Exam Head Exam: NORMAL INSPECTION - Eye Exam Eye Exam: Normal appearance Pupil Exam: NORMAL ACCOMODATION - ENT Exam ENT Exam: Mucous Membranes Moist - Neck Exam Neck Exam: Full ROM, Normal Inspection - Respiratory Exam Respiratory Exam: Clear to Ausculation Bilateral, NORMAL BREATHING PATTERN - Cardiovascular Exam Cardiovascular Exam: REGULAR RHYTHM - GI/Abdominal Exam GI & Abdominal Exam: Soft, Normal Bowel Sounds. absent: Tenderness - Extremities Exam Extremities Exam: Full ROM, Normal Capillary Refill, Normal Inspection - Back Exam Back Exam: NORMAL INSPECTION - Neurological Exam Neurological Exam: Oriented x3 - Psychiatric Exam Psychiatric exam: Normal Mood - Skin Skin Exam: Dry Assessment and Plan - Assessment and Plan (Free Text) Assessment: is is a 42 years old male with h/o alcoholism, came to ER walking with c/o some chest pain. Patient was noticed to be tremulous and soon mental status got worse.He became tachycardic, hypertensive, sweating,confused and hallucinating needed 4 point restraint in the ER. Patient received total of 15 mg iv ativan with no response. He was started on precedex and admitted to ICU Today he is off precedex.Calm and alert oriented x3 Plan: 1. Alcohol withdrawal DTs Improving,Off sedation continue librium and ativan PRN downgrade to tele 2.Alcohol abuse and alcoholic hepatitis avoid nephrotoxic agents.Hepatitis panel,Psychiatry consult 3.DVT prophylaxis-on heparin GI prophylaxis is on protonix 4.Aifrqxyhxmc-vtwgepcion-Lmsjzbdyky K 5.Alcohol abuse,denies drug use,denies h/o smoking-Advice to stop drinking
[2017-07-07] MEDS ORDERED: Potassium Chloride 20 mEq ER Tab PO ONE (09:30)
[2017-07-07] MEDS: Pantoprazole 40 mg EC Tab PO SCH (09:39)
[2017-07-07] MEDS ORDERED: Thiamine 100 mg/ml Inj IV SCH (10:00)
[2017-07-07] MEDS ORDERED: Pneumococcal 23-Valent Vaccine IM ONE (15:25)
[2017-07-07] MEDS ORDERED: Influenza Vaccine 60 mcg/0.5 mL SYR (4YR UP) IM ONE (15:25)
--- NOTE | 2017-07-08 07:12 | CP.PCM.PN ---
<Js Vanegas - Last Filed: 07/08/17 17:48> Subjective - Date & Time of Evaluation Date of Evaluation: 07/08/17 Time of Evaluation: 10:00 - Subjective Subjective: PGY-[address] Harvey Patient seen and examined at bedside. Patient states that he feels fine. Patient denies current fevers, chills, chest pain, dyspnea, abdominal pain, dysuria. Per nursing staff, patient was agitated and restless this morning before given Ativan. Objective - Vital Signs/Intake and Output Vital Signs (last 24 hours): Temp Pulse Resp BP Pulse Ox 99 F 63 20 148/90 97 07/07/17 23:30 07/07/17 23:30 07/07/17 23:30 07/07/17 23:30 07/07/17 23:30 Intake and Output: 07/08/17 07/08/17 06:59 18:59 Intake Total 610 Output Total 1450 Balance -840 - Medications Medications: Current Medications Chlordiazepoxide (Librium) 25 mg PO TID [facility] PRN Reason: Taper Stop: 07/10/17 17:59 Last Admin: 07/07/17 18:02 Dose: 25 mg Folic Acid (Folic Acid) 1 mg PO DAILY [facility] Last Admin: 07/07/17 09:39 Dose: 1 mg Heparin Sodium (Porcine) (Heparin) 5,000 units SC Q12 [facility] Last Admin: 07/07/17 21:47 Dose: 5,000 units Lorazepam (Ativan) 1 mg IVP Q4H PRN PRN Reason: Symptoms of alcohol withdrawl Last Admin: 07/07/17 23:41 Dose: 1 mg Ondansetron HCl (Zofran Inj) 4 mg IVP Q6 PRN PRN Reason: Nausea/Vomiting Pantoprazole Sodium (Protonix Ec Tab) 40 mg PO DAILY [facility] Last Admin: 07/07/17 09:39 Dose: 40 mg Thiamine HCl (Vitamin B1 Tab) 100 mg PO DAILY [facility] Last Admin: 07/07/17 09:39 Dose: 100 mg - Labs Labs: 07/07/17 06:13 07/07/17 06:44 - Constitutional Appears: No Acute Distress - Head Exam Head Exam: ATRAUMATIC, NORMOCEPHALIC - Eye Exam Eye Exam: EOMI, Normal appearance - ENT Exam ENT Exam: Mucous Membranes Moist - Respiratory Exam Respiratory Exam: Clear to Ausculation Bilateral. absent: Rales, Rhonchi, Wheezes - Cardiovascular Exam Cardiovascular Exam: REGULAR RHYTHM, +S1, +S2 - GI/Abdominal Exam GI & Abdominal Exam: Soft, Normal Bowel Sounds. absent: Tenderness - Extremities Exam Extremities Exam: absent: Calf Tenderness, Pedal Edema - Neurological Exam Neurological Exam: Alert, Awake, Oriented x3 - Psychiatric Exam Psychiatric exam: Anxious - Skin Skin Exam: Dry, Warm Assessment and Plan - Assessment and Plan (Free Text) Plan: Alcohol withdrawal, Delerium Tremens Not responding to 15 total mg of Ativan. Sedated on Precedex and taken to ICU. Improving. Taken off of precedex on 07/07/17 and downgraded to telemetry Continue Librium taper ending on 07/10/17 Ativan 1 mg IV Q4H prn Thiamine 100 mg PO daily Folic Acid 1 mg PO daily Psychiatry consult-Dr. Forman, help appreciated F/u Hepatitis panel Prophylactic Measures Protonix 40 mg PO daily Heparin 5000 units SC Q12 <Stanley Harvey - Last Filed: 07/08/17 21:06> Objective - Vital Signs/Intake and Output Vital Signs (last 24 hours): Temp Pulse Resp BP Pulse Ox 98.6 F 75 20 124/78 96 07/08/17 15:26 07/08/17 15:26 07/08/17 15:26 07/08/17 15:26 07/08/17 15:26 Intake and Output: 07/08/17 07/09/17 18:59 06:59 Intake Total 400 Balance 400 - Medications Medications: Current Medications Chlordiazepoxide (Librium) 25 mg PO BID [facility] PRN Reason: Taper Stop: 07/10/17 17:59 Last Admin: 07/08/17 18:06 Dose: 25 mg Folic Acid (Folic Acid) 1 mg PO DAILY [facility] Last Admin: 07/08/17 09:05 Dose: 1 mg Heparin Sodium (Porcine) (Heparin) 5,000 units SC Q12 [facility] Last Admin: 07/08/17 09:05 Dose: 5,000 units Lorazepam (Ativan) 1 mg IVP Q4H PRN PRN Reason: Symptoms of alcohol withdrawl Last Admin: 07/08/17 09:09 Dose: 1 mg Ondansetron HCl (Zofran Inj) 4 mg IVP Q6 PRN PRN Reason: Nausea/Vomiting Pantoprazole Sodium (Protonix Ec Tab) 40 mg PO DAILY [facility] Last Admin: 07/08/17 09:05 Dose: 40 mg Thiamine HCl (Vitamin B1 Tab) 100 mg PO DAILY [facility] Last Admin: 07/08/17 09:05 Dose: 100 mg - Labs Labs: 07/08/17 08:22 07/08/17 08:22 Attending/Attestation - Attestation I have personally seen and examined this patient.: Yes I have fully participated in the care of the patient.: Yes I have reviewed all pertinent clinical information, including history, physical exam and plan: Yes Notes (Text): Patient was seen and examined.Patient was agitated today.Ativan given continue taper librium and Ativan PRn Discussed with the resident .Agree with the assessment and plan 07/08/17 21:04
[2017-07-08 09:01] LABS: BASO % 0.6 % (0.0-2.0); EOS # 0.3 K/uL (0.0-0.7); HEMATOCRIT 35.4 % (35.0-51.0); LYMPH # 1.8 K/uL (1.0-4.3); MEAN CELL VOLUME 93.5 fL (80.0-94.0); MEAN CORPUSCULAR HEMOGLOBIN 31.8 pg (27.0-31.0); MEAN PLATELET VOLUME 8.7 fL (7.2-11.7); MONO % 13.8 % (0.0-10.0); NRBC % 0.2 % (0.0-2.0); RED CELL DISTRIBUTION WIDTH 13.8 % (11.5-14.5); WHITE BLOOD COUNT 7.1 K/uL (4.8-10.8)
[2017-07-08] MEDS: Pantoprazole 40 mg EC Tab PO SCH (09:05)
[2017-07-08 09:23] LABS: CHLORIDE 103 mmol/L (98-107); SODIUM 140 mmol/L (132-148)
[2017-07-08 09:24] LABS: POTASSIUM 3.4 mmol/L (3.6-5.2)
[2017-07-08 09:26] LABS: ALB/GLOB RATIO 0.9 (1.0-2.1); ALKALINE PHOSPHATASE 103 U/L (38-126); ALT/SGPT 83 U/L (21-72); AST/SGOT 66 U/L (17-59); BILIRUBIN,TOTAL 0.6 mg/dL (0.2-1.3); BLOOD UREA NITROGEN 10 mg/dL (9-20); CARBON DIOXIDE 25 mmol/L (22-30); GFR AFRICAN-AMERICAN > 60; GLUCOSE,RANDOM 97 mg/dL (75-110); TOTAL PROTEIN 7.9 g/dL (6.3-8.3)
[2017-07-08 09:27] LABS: CALCIUM 8.8 mg/dl (8.6-10.4); MAGNESIUM 1.7 mg/dL (1.6-2.3); PHOSPHOROUS 3.5 mg/dL (2.5-4.5)
[2017-07-08] MEDS ORDERED: Potassium Chloride 20 mEq ER Tab PO ONE (10:00)
[2017-07-09 06:34] LABS: BASO % 0.7 % (0.0-2.0); EOS # 0.3 K/uL (0.0-0.7); EOS % 5.2 % (0.0-4.0); HEMATOCRIT 34.8 % (35.0-51.0); LYMPH # 1.7 K/uL (1.0-4.3); LYMPH % 29.9 % (20.0-40.0); MEAN CELL VOLUME 93.5 fL (80.0-94.0); MEAN CORPUSCULAR HEMOGLOBIN 32.2 pg (27.0-31.0); MEAN CORPUSCULAR HGB CONC 34.4 g/dL (33.0-37.0); MEAN PLATELET VOLUME 8.3 fL (7.2-11.7); MONO % 18.4 % (0.0-10.0); NRBC % 0.3 % (0.0-2.0); WHITE BLOOD COUNT 5.6 K/uL (4.8-10.8)
[2017-07-09 07:34] LABS: CHLORIDE 103 mmol/L (98-107); POTASSIUM 3.7 mmol/L (3.6-5.2); SODIUM 136 mmol/L (132-148)
[2017-07-09 07:36] LABS: BILIRUBIN,TOTAL 0.6 mg/dL (0.2-1.3); GFR AFRICAN-AMERICAN > 60
[2017-07-09 07:37] LABS: ALKALINE PHOSPHATASE 98 U/L (38-126); ALT/SGPT 73 U/L (21-72); AST/SGOT 66 U/L (17-59); BLOOD UREA NITROGEN 12 mg/dL (9-20); CALCIUM 9.1 mg/dl (8.6-10.4); CARBON DIOXIDE 23 mmol/L (22-30); GLUCOSE,RANDOM 115 mg/dL (75-110); PHOSPHOROUS 4.4 mg/dL (2.5-4.5); TOTAL PROTEIN 7.7 g/dL (6.3-8.3)
[2017-07-09 07:38] LABS: MAGNESIUM 1.5 mg/dL (1.6-2.3)
[2017-07-09] MEDS: Pantoprazole 40 mg EC Tab PO SCH (09:16)
[2017-07-09] MEDS ORDERED: Magnesium Sulfate 1 gm in D5W 1 GM/100 ML BAG IVPB ONE (11:00)
[2017-07-09 12:44] LABS: THYROID STIMULATING HORMONE 3.08 mIU/L (0.46-4.68)
--- NOTE | 2017-07-09 12:47 | CARD ---
APPROVED REPORT EKG Measurement Heart [id number] <Conclusion> Normal sinus rhythm Normal ECG
--- NOTE | 2017-07-09 14:51 | PCM.PSYCH ---
Initial Psychiatric Evaluation - Initial Psychiatric Evaluation Type of Admission: Voluntary Legal Status: Capacity Chief Complaint (in patient's own words): "I feel alright right now" Psych consult called for pt's recent heavy alcohol use History of Present Illness and Precipitating Events: Pt is a 42 year old male with a PMH of HTN who presented to the ED 09/09 with the complaint of intermittent chest pain. He is , has two daughters aged 16 and 18, lives alone, and works in construction. His children and estranged live in [facility]. Psych called to consult with pt for recent heavy use of alcohol. He reports that he began drinking heavily over the past couple of weeks during which he drank 6-7 beers daily, up from his usual amount of 1 beer daily with dinner. He reports that he recently learned that his in [facility] left him for another man and sold two homes that they own together without consulting with him first. The stress of this situation precipitated his increased use of alcohol. He denies prior episodes of binging in the past. It is unclear whether pt is downplaying the severity of this episode because he continues to ask when he will be allowed to go home. He denies prior psych hx and a family history of psych or substance use disorders. He currently reports to feel well and denies symptoms of withdrawal. He denies visual and audio hallucinations, depression and SI. He is eating well and sleeping well. After care discussed. Pt would like to return to work after discharge. He is determined to stop drinking because he recognizes that it is not a healthy way to deal with the stress of his family situation. Will follow up later. Current Medications: Active Medications Generic Name Dose Route Start Last Admin Trade Name Kevinq PRN Reason Stop Dose Admin Chlordiazepoxide 25 mg 07/06/17 18:00 07/09/17 09:17 Librium PO 07/10/17 17:59 25 mg BID [facility] Administration Taper Folic Acid 1 mg 07/07/17 10:00 07/09/17 09:17 Folic Acid PO 1 mg DAILY [facility] Administration Lorazepam 1 mg 07/06/17 13:39 07/08/17 09:09 Ativan IVP 1 mg Q4H PRN Administration Symptoms of alcohol withdrawl Ondansetron HCl 4 mg 07/06/17 04:36 Zofran Inj IVP Q6 PRN Nausea/Vomiting Pantoprazole Sodium 40 mg 07/07/17 10:00 07/09/17 09:16 Protonix Ec Tab PO 40 mg DAILY [facility] Administration Thiamine HCl 100 mg 07/07/17 10:00 07/09/17 09:17 Vitamin B1 Tab PO 100 mg DAILY [facility] Administration Past Psychiatric History - Past Psychiatric History Previous Treatment History: None Pertinent Medical Hx (Current Medical&Sleep Prob, Allergies): Allergies Allergy/AdvReac Type Severity Reaction Status Date / Time No Known Allergies Allergy Verified 04/23/17 09:14 No Known Home Med 04/23/17 Review of Systems - Review of Systems All systems: reviewed and no additional remarkable complaints except - Neurological Neurological: absent: Tremor - Psychiatric Psychiatric: Anxiety. absent: Auditory Hallucinations, Depression, Suicidal Ideation, Visual Hallucinations Mental Status Examination - Personal Presentation Personal Presentation: Looks stated age - Affect Affect: Broad - Motor Activity Motor Activity: Calm - Reliability in Providing Information Reliability in Providing Information: Fair - Speech Speech: Organized, Relevant, Coherent - Mood Mood: Anxious - Formal Thought Process Formal Thought Process: No Impairment - Obsessions/Compulsions Obsessions: None Compulsions: None - Cognitive Functions Orientation: Person, Place, Situation, Time Sensorium: Alert Attention/Concentration: Attentive Estimate of Intelligence: Average Judgement: Intact, as evidence by: Insight regarding need for hospitalization Memory: Recent intact, as evidence by: Ability to recall events of the day, Remote intact, as evidenced by: Abilit to recall sig. life events - Risk Risk: Withdrawal - Strength & Assets Inventory Strength & Assets Inventory: Employment status, Cooperative - Limitations Limitations: Living alone DSM 5 DX - DSM 5 DSM 5 Diagnosis: Alcohol use disorder, severe Alcohol withdrawal - Recommended/Plan of Treatment Treatment Recommendations and Plan of Treatment: Librium taper As needed medications and vitamins Supportive therapy and psychoeducation [facility] for abstinence CBT for relapse prevention Refer to after care Prognosis: Good with treatment - Smoking Cessation Smoking Cessation Initiated: No
[2017-07-09 18:23] VITALS: RESP 20
--- NOTE | 2017-07-09 18:35 | CP.PCM.PN ---
Subjective - Date & Time of Evaluation Date of Evaluation: 07/09/17 Time of Evaluation: 07:45 - Subjective Subjective: Progress note for Dr. Santana PAtient seen and examined at bedside. patient had a short episode of bradycardia overnight while sleeping. No other acute events overnight. Patient denies tremors and walks to demonstrate he's ready to go home. Patient told his librium taper is to finish July 10. Patient denies fever, chills, nausea, vomiting, dizziness, headache, abdominal pain. Objective - Vital Signs/Intake and Output Vital Signs (last 24 hours): Temp Pulse Resp BP Pulse Ox 98.7 F 65 20 121/75 96 07/09/17 15:22 07/09/17 15:22 07/09/17 15:22 07/09/17 15:22 07/09/17 15:22 Intake and Output: 07/09/17 07/09/17 06:59 18:59 Intake Total 150 Output Total 650 Balance -500 - Medications Medications: Current Medications Chlordiazepoxide (Librium) 25 mg PO DAILY [facility] PRN Reason: Taper Stop: 07/10/17 17:59 Last Admin: 07/09/17 09:17 Dose: 25 mg Folic Acid (Folic Acid) 1 mg PO DAILY [facility] Last Admin: 07/09/17 09:17 Dose: 1 mg Lorazepam (Ativan) 1 mg IVP Q4H PRN PRN Reason: Symptoms of alcohol withdrawl Last Admin: 07/08/17 09:09 Dose: 1 mg Ondansetron HCl (Zofran Inj) 4 mg IVP Q6 PRN PRN Reason: Nausea/Vomiting Pantoprazole Sodium (Protonix Ec Tab) 40 mg PO DAILY [facility] Last Admin: 07/09/17 09:16 Dose: 40 mg Thiamine HCl (Vitamin B1 Tab) 100 mg PO DAILY [facility] Last Admin: 07/09/17 09:17 Dose: 100 mg - Labs Labs: 07/09/17 06:27 07/09/17 06:27 - Constitutional Appears: Non-toxic - Head Exam Head Exam: NORMAL INSPECTION - Eye Exam Eye Exam: EOMI, Normal appearance - ENT Exam ENT Exam: Mucous Membranes Moist - Neck Exam Neck Exam: Full ROM - Respiratory Exam Respiratory Exam: Clear to Ausculation Bilateral, NORMAL BREATHING PATTERN - Cardiovascular Exam Cardiovascular Exam: REGULAR RHYTHM, +S1, +S2 - GI/Abdominal Exam GI & Abdominal Exam: Soft. absent: Tenderness - Extremities Exam Extremities Exam: Full ROM, Normal Inspection. absent: Pedal Edema - Neurological Exam Neurological Exam: Alert, Awake, Normal Gait, Oriented x3 - Psychiatric Exam Psychiatric exam: Normal Affect, Normal Mood - Skin Skin Exam: Dry, Intact, Normal Color, Warm Assessment and Plan - Assessment and Plan (Free Text) Assessment: Alcohol withdrawal, Delerium Tremens on admission: Not responding to 15 total mg of Ativan. Sedated on Precedex and taken to ICU. Improving. Taken off of precedex on 07/07/17 and downgraded to telemetry Continue Librium taper ending on 07/10/17 Ativan 1 mg IV Q4H prn Thiamine 100 mg PO daily Folic Acid 1 mg PO daily Psychiatry consult-Dr. Forman F/u Hepatitis panel HIV 1 & 2 negative Urine tox screen negative Prophylaxis Protonix 40 mg PO daily Heparin 5000 units SC Q12 discuss with Dr. Mira Uribe, PGY1
[2017-07-10 08:14] LABS: BASO # 0.1 K/uL (0.0-0.2); BASO % 1.2 % (0.0-2.0); EOS # 0.3 K/uL (0.0-0.7); EOS % 4.5 % (0.0-4.0); HEMATOCRIT 36.8 % (35.0-51.0); LYMPH # 2.1 K/uL (1.0-4.3); MEAN CELL VOLUME 93.9 fL (80.0-94.0); MEAN CORPUSCULAR HEMOGLOBIN 31.9 pg (27.0-31.0); MEAN CORPUSCULAR HGB CONC 33.9 g/dL (33.0-37.0); MEAN PLATELET VOLUME 7.8 fL (7.2-11.7); MONO # 1.3 K/uL (0.0-0.8); MONO % 19.4 % (0.0-10.0); NRBC % 0.1 % (0.0-2.0); RED CELL DISTRIBUTION WIDTH 14.2 % (11.5-14.5); WHITE BLOOD COUNT 6.6 K/uL (4.8-10.8)
[2017-07-10 08:27] LABS: CHLORIDE 101 mmol/L (98-107)
[2017-07-10 08:28] LABS: SODIUM 139 mmol/L (132-148)
[2017-07-10 08:29] LABS: BILIRUBIN,TOTAL 0.5 mg/dL (0.2-1.3); GFR AFRICAN-AMERICAN > 60
[2017-07-10 08:30] LABS: ALB/GLOB RATIO 1.1 (1.0-2.1); ALKALINE PHOSPHATASE 112 U/L (38-126); ALT/SGPT 76 U/L (21-72); AST/SGOT 62 U/L (17-59); BLOOD UREA NITROGEN 14 mg/dL (9-20); CARBON DIOXIDE 25 mmol/L (22-30); GLUCOSE,RANDOM 134 mg/dL (75-110); TOTAL PROTEIN 8.3 g/dL (6.3-8.3)
[2017-07-10 08:31] LABS: CALCIUM 9.9 mg/dl (8.6-10.4); MAGNESIUM 1.3 mg/dL (1.6-2.3)
[2017-07-10] MEDS: Pantoprazole 40 mg EC Tab PO SCH (10:34)
[2017-07-10] MEDS: Magnesium Sulfate 1 gm in D5W 1 GM/100 ML BAG IVPB SCH ×2 (13:59→14:37)
--- NOTE | 2017-07-10 15:25 | CP.PCM.DIS ---
Provider - Provider Date of Admission: 07/06/17 01:36 Attending physician: Stanley Harvey MD Consults: Consults: Critical Care Consult: Dr. Chaney Psychiatry consult: Dr. Forman Time Spent in preparation of Discharge (in minutes): 35 Diagnosis - Discharge Diagnosis (1) Delirium tremens Status: Resolved Comment: patient was discharged after librium taper and was given information about alcoholics anonymous Hospital Course - Lab Results Lab Results: Micro Results 07/07/17 21:36 Naris MRSA Culture - Final MRSA NOT DETECTED 07/06/17 08:30 Nose MRSA Culture (Admit) - Final MRSA NOT DETECTED Most Recent Lab Values WBC 6.6 K/uL (4.8-10.8) 07/10/17 08:05 RBC 3.92 Mil/uL (4.40-5.90) L 07/10/17 08:05 Hgb 12.5 g/dL (12.0-18.0) 07/10/17 08:05 Hct 36.8 % (35.0-51.0) 07/10/17 08:05 MCV 93.9 fL (80.0-94.0) 07/10/17 08:05 MCH 31.9 pg (27.0-31.0) H 07/10/17 08:05 MCHC 33.9 g/dL (33.0-37.0) 07/10/17 08:05 RDW 14.2 % (11.5-14.5) 07/10/17 08:05 Plt Count 370 K/uL (130-400) D 07/10/17 08:05 MPV 7.8 fL (7.2-11.7) 07/10/17 08:05 Neut % (Auto) 43.9 % (50.0-75.0) L 07/10/17 08:05 Lymph % (Auto) 31.0 % (20.0-40.0) 07/10/17 08:05 Dickens % (Auto) 19.4 % (0.0-10.0) H 07/10/17 08:05 Eos % (Auto) 4.5 % (0.0-4.0) H 07/10/17 08:05 Baso % (Auto) 1.2 % (0.0-2.0) 07/10/17 08:05 Neut # 2.9 K/uL (1.8-7.0) 07/10/17 08:05 Lymph # 2.1 K/uL (1.0-4.3) 07/10/17 08:05 Dickens # 1.3 K/uL (0.0-0.8) H 07/10/17 08:05 Eos # 0.3 K/uL (0.0-0.7) 07/10/17 08:05 Baso # 0.1 K/uL (0.0-0.2) 07/10/17 08:05 Sodium 139 mmol/L (132-148) 07/10/17 08:05 Potassium 4.0 mmol/L (3.6-5.2) 07/10/17 08:05 Chloride 101 mmol/L (98-107) 07/10/17 08:05 Carbon Dioxide 25 mmol/L (22-30) 07/10/17 08:05 Anion Gap 17 (10-20) 07/10/17 08:05 BUN 14 mg/dL (9-20) 07/10/17 08:05 Creatinine 0.7 mg/dL (0.8-1.5) L 07/10/17 08:05 Est GFR ( Amer) > 60 07/10/17 08:05 Est GFR (Non-Af Amer) > 60 07/10/17 08:05 POC Glucose (mg/dL) 92 mg/dL (65-110) 07/07/17 07:44 Random Glucose 134 mg/dL (75-110) H 07/10/17 08:05 Calcium 9.9 mg/dl (8.6-10.4) 07/10/17 08:05 Phosphorus 5.0 mg/dL (2.5-4.5) H 07/10/17 08:05 Magnesium 1.3 mg/dL (1.6-2.3) L 07/10/17 08:05 Total Bilirubin 0.5 mg/dL (0.2-1.3) 07/10/17 08:05 AST 62 U/L (17-59) H 07/10/17 08:05 ALT 76 U/L (21-72) H 07/10/17 08:05 Alkaline Phosphatase 112 U/L (38-126) 07/10/17 08:05 Total Creatine Kinase 262 U/L (55-170) H 07/06/17 09:36 Troponin I 0.0190 ng/mL (0.00-0.120) 07/06/17 09:36 Total Protein 8.3 g/dL (6.3-8.3) 07/10/17 08:05 Albumin 4.3 g/dL (3.5-5.0) 07/10/17 08:05 Globulin 4.0 gm/dL (2.2-3.9) H 07/10/17 08:05 Albumin/Globulin Ratio 1.1 (1.0-2.1) 07/10/17 08:05 TSH 3rd Generation 3.08 mIU/L (0.46-4.68) 07/09/17 06:27 Urine Color Yellow (YELLOW) 07/06/17 01:57 Urine Clarity Clear (Clear) 07/06/17 01:57 Urine pH 6.0 (5.0-8.0) 07/06/17 01:57 Ur Specific [place] 1.016 (1.003-1.030) 07/06/17 01:57 Urine Protein 2+ mg/dL (NEGATIVE) H 07/06/17 01:57 Urine Glucose (UA) Normal mg/dL (Normal) 07/06/17 01:57 Urine Ketones Negative mg/dL (NEGATIVE) 07/06/17 01:57 Urine Blood Negative (NEGATIVE) 07/06/17 01:57 Urine Nitrate Negative (NEGATIVE) 07/06/17 01:57 Urine Bilirubin Negative (NEGATIVE) 07/06/17 01:57 Urine Urobilinogen 4.0 mg/dL (0.2-1.0) 07/06/17 01:57 Ur Leukocyte Esterase Neg Ubaldo/uL (Negative) 07/06/17 01:57 Urine WBC (Auto) < 1 /hpf (0-5) 07/06/17 01:57 Ur Squamous Epith Cells 4 /hpf (0-5) 07/06/17 01:57 Urine Opiates Screen Negative (NEGATIVE) 07/06/17 01:57 Urine Methadone Screen Negative (NEGATIVE) 07/06/17 01:57 Ur Barbiturates Screen Negative (NEGATIVE) 07/06/17 01:57 Ur Phencyclidine Scrn Negative (NEGATIVE) 07/06/17 01:57 Ur Amphetamines Screen Negative (NEGATIVE) 07/06/17 01:57 U Benzodiazepines Scrn Negative (NEGATIVE) 07/06/17 01:57 U Oth Cocaine Metabols Negative (NEGATIVE) 07/06/17 01:57 U Cannabinoids Screen Negative (NEGATIVE) 07/06/17 01:57 Alcohol, Quantitative < 10 mg/dl (0-10) 07/05/17 23:56 HIV 1&2 Antibody Screen Negative (NEGATIVE) 07/06/17 09:36 - Hospital Course Hospital Course: HPI Patient is a 42yo male who came walking into the ER with complaining of chest pain that appeared diaphoretic and tremulous. Patient admitted to being a heavy drinker and stated his last drink was about 1 day ago. Patients quickly became altered/obtunded and was clearly hallucinating both visually and auditory. He would rarely respond appropriately to questions. He became restless and was trying to climb off the bed. After many attempts to calm the patient, 4 point restraints were placed for the patients safety. He was given a total of 10mg Ativan IV at 2mg increments with no response. The patient was then given a 5mg dose again with no response. The patient was put on a precedex drip which finally gave him some relief. The patient was transported to the ICU. Hospital Course: Patient was initially brought to ICU for delerium trem and was placed on librium taper due to lack of response to 15 mg Ativan IVP. Patient was also placed on CIWA protocol. 07/06 Patient is arousable and was able to state his name, but did not know his location. Patient was moved up to the floor Patient was on librium taper with ativan for PRN use. Over the weekend, patient has non complaints and is more alert and oriented. Patient states he feels fine and did not have any complaints. The tremors were not visible. Patient states he can walk well. Gait was assessed . Patient told he has to finish librium taper set to finish by 07/10. During hospital stay , patient was encouraged to discontinue alcohol intake. Psychiatry saw patient and patient was noted to want to discontinue and admitted that it was an unhealthy way to deal with stressors in life. Consults: Critical Care Consult: Dr. Chaney Psychiatry consult: Dr. Forman Patient was discharged with instructions to: follow up with medical care at [facility] in 7 days Patient was also given information about Alcoholics Anonymous to continue support system for alcohol cessation. - Date & Time of H&P Date of H&P: 07/10/17 Time of H&P: 15:23 Discharge Exam - Head Exam Head Exam: NORMAL INSPECTION - Eye Exam Eye Exam: EOMI, Normal appearance - ENT Exam ENT Exam: Mucous Membranes Moist - Respiratory Exam Respiratory Exam: NORMAL BREATHING PATTERN. absent: Accessory Muscle Use, Respiratory Distress - Cardiovascular Exam Cardiovascular Exam: REGULAR RHYTHM, +S1, +S2 - GI/Abdominal Exam GI & Abdominal Exam: Soft. absent: Firm, Guarding, Tenderness - Neurological Exam Neurological exam: Alert, CN II-XII Intact, Normal Gait Additional comments: no tremors with outstretched hands - Psychiatric Exam Psychiatric exam: Normal Affect, Normal Mood - Skin Skin Exam: Dry, Intact, Warm Discharge Plan - Follow Up Plan Condition: FAIR Disposition: HOME/ ROUTINE Instructions: Alcohol Intoxication (DC), Abuse of Alcohol (DC) Additional Instructions: Patient is medically stable for discharge. Patient is to follow up with [facility] Floor B at [phone] in 7 days for general medical care follow up with AA meetings (list and information was given to you) return to ED if tremors, seizures, abdominal pain, nausea, vomiting Referrals: [facility] [Outside]
[2017-07-10 15:57] VITALS: BP 119/75; TEMP 98.4; O2SAT 96
[2017-07-10 16:01] VITALS: PULSE 72
== END 2017-07-10 18:38 | disposition home or self-care (01) | DRG 897 ==
LOC: C.ER 22:18 → C.9E 07-06 01:36 → C.9I 07-06 03:54 → C.6T 07-07 21:05
PROVIDERS: ADMIT Family Medicine; ATTEND Family Medicine
PROC: HZ2ZZZZ Detoxification Services for Substance Abuse Treatment (ICD-10-PCS; principal; 2017-07-06)
DX: F10.231 Alcohol dependence with withdrawal delirium (principal); F10.288 Alcohol dependence with other alcohol-induced disorder; K70.10 Alcoholic hepatitis without ascites; I10 Essential (primary) hypertension; E86.0 Dehydration; Z63.8 Other specified problems related to primary support group; R04.0 Epistaxis

== ENCOUNTER 2017-09-21 09:59 | Emergency (ER) | payer SELFPAY ==
[2017-09-21 10:00] VITALS: BMI 24.1
[2017-09-21 10:32] VITALS: BP 158/80; PULSE 90; RESP 20; TEMP 98.3; O2SAT 95
--- NOTE | 2017-09-21 10:50 | C.PDOC ---
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 Pt denies SI, HI, or any active physical complaints at this time. Chief Complaint (Nursing): Substance Abuse History Per: Patient History/Exam Limitations: no limitations Onset/Duration Of Symptoms: Gradual Current Symptoms Are (Timing): Still Present Suicide/Self Injury Attempted (Context): None Modifying Factor(s): Alcohol Severity: None Pain Scale Rating Of: 0 Associated Symptoms: denies: Suicidal Thoughts, Suicidal Plan Involuntary Hold By: None Recent travel outside of the [place]: No Additional History Per: EMS Past Medical History Reviewed: Historical Data, Nursing Documentation, Vital Signs Vital Signs: Last Vital Signs Temp 98.3 F 09/21/17 10:05 Pulse 90 09/21/17 10:05 Resp 20 09/21/17 10:05 BP 158/80 H 09/21/17 10:05 Pulse Ox 95 09/21/17 10:51 - Medical History PMH: HTN, Seizures Denies: Chronic Kidney Disease - [employer] Procedures DETOXIFICATION SERVICES FOR SUBSTANCE ABUSE TREATMENT (07/06/17) REPAIR TONGUE, EXTERNAL APPROACH (01/19/16) Family History: States: Unknown Family Hx - Social History Hx Alcohol Use: Yes Hx Substance Use: No - Immunization History Hx Tetanus Toxoid Vaccination: No Hx Influenza Vaccination: No Hx Pneumococcal Vaccination: No Review Of Systems Except As Marked, All Systems Reviewed And Found Negative. Constitutional: Negative for: Fever, Chills Cardiovascular: Negative for: Chest Pain, Palpitations Respiratory: Negative for: Cough, Shortness of Breath Gastrointestinal: Negative for: Nausea, Vomiting, Abdominal Pain Neurological: Negative for: Headache, Dizziness Psych: Negative for: Suicidal ideation Physical Exam - Physical Exam Appears: Non-toxic, No Acute Distress, Other ((+)EtOH on breath) Skin: Normal Color, Warm, Dry Head: Atraumatic, Normacephalic Eye(s): bilateral: Normal Inspection Oral Mucosa: Moist Cardiovascular: Rhythm Regular, No Murmur Respiratory: Normal Breath Sounds, No Rales, No Rhonchi, No Wheezing Gastrointestinal/Abdominal: Soft, No Tenderness Extremity: Bilateral: Atraumatic, Normal ROM Neurological/Psych: Oriented x3 ED Course And Treatment O2 Sat by Pulse Oximetry: 95 (RA) Pulse Ox Interpretation: Normal Disposition - Disposition Referrals: Alcoholics Anonymous [Outside] [facility] [Outside] [facility] [Outside] Disposition: HOME/ ROUTINE Disposition Time: 13:30 Condition: IMPROVED Additional Instructions: Thank you for letting us take care of you today. The emergency medical care you received today was directed at your acute symptoms. If you were prescribed any medication, please fill it and take as directed. It may take several days for your symptoms to resolve. Return to the Emergency Department if your symptoms worsen, do not improve, or if you have any other problems. Please contact your doctor or call one of the physicians/clinics you have been referred to that are listed on the Patient Visit Information form that is included in your discharge packet. Bring any paperwork you were given at discharge with you along with any medications you are taking to your follow up visit. Our treatment cannot replace ongoing medical care by a primary care provider (PCP) outside of the emergency department. Thank you for allowing the [facility] team to be part of your care today. Follow up with your doctor or the clinic in 3-5 days for re-evaluation and further management. Parvin por dejarnos atenderlo hoy. La atencin mdica de emergencia que recibi hoy estaba dirigida a kath sntomas agudos. Si le prescribieron algn medicamento, llnelo y tome segn las indicaciones. Kath sntomas pueden tardar varios gibson en resolverse. Regrese al Departamento de Emergencia si kath s ntomas empeoran, no mejoran o si tiene algn otro problema. Comunquese con laguerre mdico o llame a butch de los mdicos / clnicas a los que anguiano sido referido que figura en el formulario de Informacin de visita del paciente que se incluye en laguerre paquete de aileen. Traiga todos los documentos que recibi al momento del aileen junto con los medicamentos que est tomando en laguerre visita de seguimiento. Nuestro tratamiento no puede reemplazar la atencin mdica en curso por parte de un proveedor de atencin primaria (PCP) fuera del departamento de emergencias. Parvin por permitir que el equipo de [facility] sea parte de laguerre cuidado hoy. Jessie un seguimiento con laguerre mdico o la clnica en 3-5 gibson para keisha reevaluaci n y administracin adicional. Instructions: Alcohol Intoxication (ED) Forms: Gen Discharge Inst Gambian Print Language: GAMBIAN - Clinical Impression Clinical Impression: Alcohol abuse - Scribe Statement The provider has reviewed the documentation as recorded by the Scribe Hunter Doyle All medical record entries made by the Scribe were at my direction and personally dictated by me. I have reviewed the chart and agree that the record accurately reflects my personal performance of the history, physical exam, medical decision making, and the department course for this patient. I have also personally directed, reviewed, and agree with the discharge instructions and disposition.
== END 2017-09-21 14:57 | disposition home or self-care (01) ==
LOC: C.ER 09:59
DX: F10.10 Alcohol abuse, uncomplicated (principal); Y90.9 Presence of alcohol in blood, level not specified

== ENCOUNTER 2017-12-15 00:04 | Emergency (ER) | payer SELFPAY ==
[2017-12-15 00:05] VITALS: BMI 24.1
--- NOTE | 2017-12-15 01:04 | C.PDOC ---
History Of Present Illness 42 y/o male well known to the ER presents heavily intoxicated. Patient reports having left sided chest pain that is positional and worse with deep breaths. Denies fever, cough, or trauma. Patient is a poor historian due to inebriation. No other Hx available. Time Seen by Provider: 12/15/17 00:13 Chief Complaint (Nursing): Chest Pain History Per: Patient History/Exam Limitations: clinical condition, intoxication Onset/Duration Of Symptoms: Hrs Current Symptoms Are (Timing): Still Present Suicide/Self Injury Attempted (Context): None Modifying Factor(s): Alcohol Associated Symptoms: denies: Suicidal Thoughts, Suicidal Plan Involuntary Hold By: None Recent travel outside of the [place]: No Past Medical History Reviewed: Historical Data, Nursing Documentation, Vital Signs Vital Signs: Last Vital Signs Temp 97.6 F 12/15/17 05:22 Pulse 90 12/15/17 05:22 Resp 20 12/15/17 05:22 BP 132/90 12/15/17 05:22 Pulse Ox 96 12/15/17 05:22 - Medical History PMH: HTN, Seizures - [employer] Procedures DETOXIFICATION SERVICES FOR SUBSTANCE ABUSE TREATMENT (07/06/17) REPAIR TONGUE, EXTERNAL APPROACH (01/19/16) Family History: States: Unknown Family Hx - Social History Hx Alcohol Use: Yes Hx Substance Use: No - Immunization History Hx Tetanus Toxoid Vaccination: No Hx Influenza Vaccination: No Hx Pneumococcal Vaccination: No Review Of Systems Constitutional: Negative for: Fever, Chills Cardiovascular: Positive for: Chest Pain (left sided) Respiratory: Negative for: Cough, Shortness of Breath Gastrointestinal: Negative for: Nausea, Vomiting, Abdominal Pain, Diarrhea Neurological: Negative for: Weakness, Numbness Psych: Negative for: Suicidal ideation Physical Exam - Physical Exam Appears: Non-toxic, No Acute Distress, Other (somnolent bur arousable to verbal stimuli; no evidence of trauma ) Skin: Warm, Dry Head: Atraumatic, Normacephalic Eye(s): bilateral: Normal Inspection Oral Mucosa: Moist Neck: Supple Chest: Symmetrical, Other (Chestwall painful to palpation) Cardiovascular: Rhythm Regular Respiratory: Normal Breath Sounds, No Decreased Breath Sounds, No Rales, No Rhonchi, No Wheezing Gastrointestinal/Abdominal: Soft, No Tenderness, No Distention, No Guarding, No Rebound Extremity: Normal ROM, No Tenderness, No Pedal Edema, No Deformity, Other (no evidence of trauma) Extremity: Bilateral: Normal Color And Temperature, Normal ROM Pulses: Left Dorsalis Pedis: Normal, Right Dorsalis Pedis: Normal Neurological/Psych: Oriented x3, Normal Speech, Normal Cognition ED Course And Treatment O2 Sat by Pulse Oximetry: 96 (RA) Pulse Ox Interpretation: Normal Medical Decision Making Medical Decision Making: Impression: - Chest wall pain - Alcohol intoxication Plan - Will discharge when complete sobriety with frequent neuro checks EKG results: - Normal sinus rhythm at 76bpm - No ectopy - No acute ST changes - Normal EKG Disposition - Disposition Referrals: [facility] [Outside] Disposition: HOME/ ROUTINE Disposition Time: 07:13 Condition: GOOD Instructions: Alcohol Use - When Is Drinking a Problem? Forms: [facility] (Micronesian) Print Language: NEPALI - Clinical Impression Clinical Impression: Alcoholism - Scribe Statement The provider has reviewed the documentation as recorded by the Scribe Han Sanchez All medical record entries made by the Scribe were at my direction and personally dictated by me. I have reviewed the chart and agree that the record accurately reflects my personal performance of the history, physical exam, medical decision making, and the department course for this patient. I have also personally directed, reviewed, and agree with the discharge instructions and disposition.
[2017-12-15 03:42] VITALS: RESP 20; TEMP 97.6
[2017-12-15 05:24] VITALS: BP 132/90; PULSE 90; O2SAT 96
== END 2017-12-15 05:24 | disposition home or self-care (01) ==
LOC: C.ER 00:04
DX: F10.229 Alcohol dependence with intoxication, unspecified (principal); Y90.9 Presence of alcohol in blood, level not specified; R07.89 Other chest pain

== ENCOUNTER 2018-01-03 21:13 | Inpatient (IN) | payer OTHER ==
[2018-01-03 21:13] VITALS: BMI 24.1
[2018-01-03 22:30] LABS: BASO # 0.1 K/uL (0.0-0.2); BASO % 1.2 % (0.0-2.0); EOS # 0.3 K/uL (0.0-0.7); EOS % 4.5 % (0.0-4.0); LYMPH # 1.7 K/uL (1.0-4.3); LYMPH % 29.2 % (20.0-40.0); MEAN CELL VOLUME 92.4 fL (80.0-94.0); MEAN CORPUSCULAR HEMOGLOBIN 31.5 pg (27.0-31.0); MEAN PLATELET VOLUME 8.8 fL (7.2-11.7); MONO # 0.8 K/uL (0.0-0.8); MONO % 13.3 % (0.0-10.0); NEUT % 51.8 % (50.0-75.0); NRBC % 0.1 % (0.0-2.0); RBC 3.51 Mil/uL (4.40-5.90); RED CELL DISTRIBUTION WIDTH 14.3 % (11.5-14.5); WHITE BLOOD COUNT 5.8 K/uL (4.8-10.8)
[2018-01-03 22:43] LABS: CALCIUM 8.6 mg/dl (8.6-10.4); GFR AFRICAN-AMERICAN > 60; GFR NON-AFRICAN AMERICAN > 60; LIPASE 250 U/L (23-300)
[2018-01-03 22:46] LABS: ALBUMIN 4.2 g/dL (3.5-5.0); ALT/SGPT 42 U/L (21-72); AST/SGOT 106 U/L (17-59); BLOOD UREA NITROGEN 17 mg/dL (9-20)
[2018-01-03 22:54] LABS: B-TYPE NATRIURETIC PEPTIDE 123 pg/mL (0-450); CK-MB 2.07 ng/mL (0.0-3.38)
[2018-01-03 23:15] LABS: URINE BACTERIA RARE (<OCC); URINE BILIRUBIN NEGATIVE (NEGATIVE); URINE BLOOD NEGATIVE (NEGATIVE); URINE CLARITY Clear (Clear); URINE COLOR Yellow (YELLOW); URINE GLUCOSE (UA) NORMAL (Normal); URINE LEUKOCYTE ESTERASE NEG Leu/uL (Negative); URINE PROTEIN NEGATIVE (NEGATIVE)
[2018-01-03 23:26] LABS: BARBITURATES, UR NEGATIVE (NEGATIVE); BENZODIAZEPINES, UR NEGATIVE (NEGATIVE); OPIATES, UR NEGATIVE (NEGATIVE); PHENCYCLIDINE, UR NEGATIVE (NEGATIVE)
--- NOTE | 2018-01-04 00:28 | C.PDOC ---
History Of Present Illness Patient presents to ED c/o intermittent left sided chest pain for the past 1 week, worsening today. He states the pain is associated with mild SOB. He denies cough, fever, palpitations, abdominal pain, nausea/vomiting/diarrhea, dysuria. PMHx of HTN, alcohol dependence/abuse, seizures (alcohol withdrawal?). Time Seen by Provider: 01/03/18 21:48 Chief Complaint (Nursing): Chest Pain History Per: Patient History/Exam Limitations: no limitations Onset/Duration Of Symptoms: Days Current Symptoms Are (Timing): Worse Severity: Moderate Quality: "Pain" Associated Symptoms: Dyspnea. denies: Nausea, Diaphoresis, Syncope Past Medical History Reviewed: Historical Data, Nursing Documentation, Vital Signs Vital Signs: Last Vital Signs Temp 97.9 F 01/10/18 06:18 Pulse 86 01/10/18 06:18 Resp 18 01/10/18 06:18 BP 109/66 01/10/18 06:18 Pulse Ox 98 01/10/18 17:15 - Medical History PMH: HTN, Seizures - [employer] Procedures DETOXIFICATION SERVICES FOR SUBSTANCE ABUSE TREATMENT (07/06/17) REPAIR TONGUE, EXTERNAL APPROACH (01/19/16) Family History: States: No Known Family Hx - Social History Hx Alcohol Use: Yes Hx Substance Use: No - Immunization History Hx Tetanus Toxoid Vaccination: No Hx Influenza Vaccination: No Hx Pneumococcal Vaccination: No Review Of Systems Except As Marked, All Systems Reviewed And Found Negative. Constitutional: Negative for: Fever, Chills Cardiovascular: Positive for: Chest Pain. Negative for: Palpitations Respiratory: Positive for: Shortness of Breath. Negative for: Cough Gastrointestinal: Negative for: Nausea, Vomiting, Abdominal Pain, Diarrhea Genitourinary: Negative for: Dysuria, Hematuria Skin: Negative for: Rash Neurological: Negative for: Seizures, Headache, Dizziness Physical Exam - Physical Exam Appears: Well, Non-toxic, In Acute Distress (in mild pain, speaking in full sentences), Unkempt Skin: Normal Color, Warm, Dry, No Rash Head: Normacephalic Eye(s): bilateral: Normal Inspection Oral Mucosa: Moist Neck: Normal Chest: Tenderness (mild TTP left chest), No Ecchymosis, No Subcutaneous Emphysema Cardiovascular: Rhythm Regular, No Murmur Respiratory: Normal Breath Sounds, No Rales, No Rhonchi, No Wheezing Gastrointestinal/Abdominal: Normal Exam, Bowel Sounds, Soft, No Tenderness Extremity: Normal ROM, No Pedal Edema, No Calf Tenderness Pulses: Left Dorsalis Pedis: Normal, Right Dorsalis Pedis: Normal Neurological/Psych: Oriented x3 ED Course And Treatment - Laboratory Results Result Diagrams: 01/04/18 05:30 01/04/18 05:30 ECG: Interpreted By Me, Viewed By Me (NSR 75 bpm, normal axis, Q waves II, aVF, V4, V5, no acute ST changes, T wave inversion V6) ECG Interpretation: Abnormal O2 Sat by Pulse Oximetry: 98 (RA) Pulse Ox Interpretation: Normal - Radiology CXR: Interpreted by Me, Viewed By Me CXR Interpretation: Yes: No Acute Disease. No: Infiltrates Progress Note: Blood work, UA, UDS, EKG, CXR ordered and reviewed. Patient given PO ASA. - Physician Consult Information Physician Contacted: Rodolfo Tavera Outcome Of Conversation: Discussed patient with hospitalist, agrees with obs telemetry for chest pain, abnormal EKG, r/o ACS. Disposition - Disposition Disposition: HOSPITALIZED Disposition Time: 00:41 Condition: STABLE - Clinical Impression Clinical Impression: Chest pain, Abnormal EKG Decision To Admit - Pt Status Changed To: Hospital Disposition Of: Observation - . Bed Request Type: Telemetry Admitting Physician: Rodolfo Tavera Patient Diagnosis: Chest pain, Abnormal EKG
--- NOTE | 2018-01-04 01:48 | CP.PCM.HP ---
<Tone Serrato - Last Filed: 01/04/18 02:28> History of Present Illness - History of Present Illness History of Present Illness: CC: chest pain 42 year old male with history of alcohol abuse presents to the ED today complaining of chest pain. Patient reports his chest pain is located on his left chest. 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 The pain comes and goes then it became worse today which prompted the patient to come to the ED. He describes the pain sharp in quality, non radiating, worse with arm movement. 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 He did not take any medications for this pain. Patient also report to have a right ankle sprain which happened at work 1 week ago. Patient denies fever, chills, headache , shortness of breath, abdominal pain, nausea, vomiting, or diarrhea. PMD: none Allergies: no known drug allergies PMHx: alcohol abuse Surgical Hx: abdominal surgery s/p trauma/laceration Social Hx: Drinks 2 beers in during the weekend, last alcohol intake was last Sunday. Denies tobacco use, denies illicit drug use Family Hx: denies Meds: denies Present on Admission - Present on Admission Any Indicators Present on Admission: No Review of Systems - Constitutional Constitutional: As Per HPI. absent: Chills, Fever, Lethargy - EENT Eyes: As Per HPI. absent: Blurred Vision, Photophobia Ears: As Per HPI. absent: Ear Pain, Dizziness Nose/Mouth/Throat: As Per HPI. absent: Epistaxis, Nasal Obstruction, Nasal Trauma - Cardiovascular Cardiovascular: As Per HPI, Chest Pain, Chest Pain with Activity. absent: Diaphoresis, Dyspnea, Edema - Respiratory Respiratory: As Per HPI. absent: Cough, Dyspnea - Gastrointestinal Gastrointestinal: As Per HPI. absent: Abdominal Pain, Diarrhea, Nausea, Vomiting - Genitourinary Genitourinary: As Per HPI. absent: Urinary Frequency, Urinary Hesitance - Reproductive: Male Reproductive:Male: As Per HPI - Musculoskeletal Musculoskeletal: As Per HPI, Other (right ankle pain) - Integumentary Integumentary: As Per HPI. absent: Acne, Alopecia - Neurological Neurological: As Per HPI. absent: Dizziness, Numbness, Tremor - Psychiatric Psychiatric: As Per HPI. absent: Anxiety, Confusion, Depression - Endocrine Endocrine: As Per HPI. absent: Fatigue, Flushing - Hematologic/Lymphatic Hematologic: As Per HPI Past Patient History - Infectious Disease Hx of Infectious Diseases: None - Past Medical History & Family History Past Medical History?: Yes - Past Social History Smoking Status: Never Smoked - CARDIAC Hx Hypertension: Yes - PULMONARY Hx Respiratory Disorders: No - NEUROLOGICAL Hx Seizures: Yes - HEENT Hx HEENT Problems: No - RENAL Hx Chronic Kidney Disease: No - ENDOCRINE/METABOLIC Hx Endocrine Disorders: No - HEMATOLOGICAL/ONCOLOGICAL Hx Blood Disorders: No - INTEGUMENTARY Hx Dermatological Problems: No - MUSCULOSKELETAL/RHEUMATOLOGICAL Hx Musculoskeletal Disorders: No Hx Falls: No - GASTROINTESTINAL Hx Gastrointestinal Disorders: No - GENITOURINARY/GYNECOLOGICAL Hx Genitourinary Disorders: No - PSYCHIATRIC Hx Substance Use: No - SURGICAL HISTORY Hx Surgeries: Yes Other/Comment: Abdominal Sx - ANESTHESIA Hx Anesthesia: Yes Hx Anesthesia Reactions: No Hx Malignant Hyperthermia: No Meds Allergies/Adverse Reactions: Allergies Allergy/AdvReac Type Severity Reaction Status Date / Time No Known Allergies Allergy Verified 01/03/18 21:29 Physical Exam - Constitutional Appears: Non-toxic, No Acute Distress - Head Exam Head Exam: ATRAUMATIC, NORMOCEPHALIC - Eye Exam Eye Exam: EOMI, Normal appearance Pupil Exam: PERRL - ENT Exam ENT Exam: Mucous Membranes Moist - Neck Exam Neck exam: Positive for: Normal Inspection - Respiratory Exam Respiratory Exam: Clear to Auscultation Bilateral, NORMAL BREATHING PATTERN. absent: Wheezes, Respiratory Distress - Cardiovascular Exam Cardiovascular Exam: REGULAR RHYTHM, +S1, +S2 - GI/Abdominal Exam GI & Abdominal Exam: Normal Bowel Sounds, Soft. absent: Tenderness - Extremities Exam Extremities exam: Negative for: normal inspection (right ankle swelling, slight ecchymosis, able to bear weight) - Neurological Exam Neurological exam: Alert, Oriented x3 - Psychiatric Exam Psychiatric exam: Normal Affect, Normal Mood - Skin Skin Exam: Dry, Warm Results - Vital Signs Recent Vital Signs: Last Vital Signs Temp 97.8 F 01/04/18 01:30 Pulse 71 01/04/18 01:30 Resp 20 01/04/18 01:30 BP 148/84 01/04/18 01:30 Pulse Ox 98 01/04/18 01:30 - Labs Result Diagrams: 01/03/18 22:26 01/03/18 22:26 Labs: Laboratory Results - last 24 hr 01/03/18 01/03/18 01/03/18 22:26 22:26 23:07 WBC 5.8 RBC 3.51 L Hgb 11.0 L Hct 32.5 L MCV 92.4 MCH 31.5 H MCHC 34.0 RDW 14.3 Plt Count 200 D MPV 8.8 Neut % (Auto) 51.8 Lymph % (Auto) 29.2 [place] % (Auto) 13.3 H Eos % (Auto) 4.5 H Baso % (Auto) 1.2 Neut # (Auto) 3.0 Lymph # (Auto) 1.7 [place] # (Auto) 0.8 Eos # (Auto) 0.3 Baso # (Auto) 0.1 Sodium 136 Potassium 5.1 Chloride 102 Carbon Dioxide 22 Anion Gap 17 BUN 17 Creatinine 0.6 L Est GFR ( Amer) > 60 Est GFR (Non-Af Amer) > 60 POC Glucose (mg/dL) Random Glucose 115 H Calcium 8.6 Total Bilirubin 1.6 H AST 106 H D ALT 42 Alkaline Phosphatase 117 Total Creatine Kinase 333 H CK-MB (Mass) 2.07 Troponin I 0.0260 NT-Pro-B Natriuret Pep 123 Total Protein 8.4 H Albumin 4.2 Globulin 4.2 H Albumin/Globulin Ratio 1.0 Lipase 250 Urine Color Yellow Urine Clarity Clear Urine pH 6.0 Ur Specific [place] 1.015 Urine Protein Negative Urine Glucose (UA) Normal Urine Ketones Negative Urine Blood Negative Urine Nitrate Negative Urine Bilirubin Negative Urine Urobilinogen 2.0 Ur Leukocyte Esterase Neg Urine WBC (Auto) < 1 Urine RBC (Auto) < 1 Ur Transition Epith Cell < 1 Urine Bacteria Rare Urine Opiates Screen Urine Methadone Screen Ur Barbiturates Screen Ur Phencyclidine Scrn Ur Amphetamines Screen U Benzodiazepines Scrn U Oth Cocaine Metabols U Cannabinoids Screen Alcohol, Quantitative < 10 01/03/18 01/03/18 23:07 23:41 WBC RBC Hgb Hct MCV MCH MCHC RDW Plt Count MPV Neut % (Auto) Lymph % (Auto) [place] % (Auto) Eos % (Auto) Baso % (Auto) Neut # (Auto) Lymph # (Auto) [place] # (Auto) Eos # (Auto) Baso # (Auto) Sodium Potassium Chloride Carbon Dioxide Anion Gap BUN Creatinine Est GFR ( Amer) Est GFR (Non-Af Amer) POC Glucose (mg/dL) 109 Random Glucose Calcium Total Bilirubin AST ALT Alkaline Phosphatase Total Creatine Kinase CK-MB (Mass) Troponin I NT-Pro-B Natriuret Pep Total Protein Albumin Globulin Albumin/Globulin Ratio Lipase Urine Color Urine Clarity Urine pH Ur Specific [place] Urine Protein Urine Glucose (UA) Urine Ketones Urine Blood Urine Nitrate Urine Bilirubin Urine Urobilinogen Ur Leukocyte Esterase Urine WBC (Auto) Urine RBC (Auto) Ur Transition Epith Cell Urine Bacteria Urine Opiates Screen Negative Urine Methadone Screen Negative Ur Barbiturates Screen Negative Ur Phencyclidine Scrn Negative Ur Amphetamines Screen Negative U Benzodiazepines Scrn Negative U Oth Cocaine Metabols Negative U Cannabinoids Screen Negative Alcohol, Quantitative Assessment & Plan - Assessment and Plan (Free Text) Assessment: Chest pain r/o ACS -EKG NSR 75bpm, no axis deviation, no acute ST changes -CXR no active disease -Troponin negative, repeats pending -follow up am EKG -ASA 81mg -Crestor 5mg -Motrin 400mg prn Right ankle sprain -Improving -Motrin 400mg prn Constipation -Colace 100mg History of alcohol abuse -UDS negative Prophylactic measures -Protonix -Lovenox <Rodolfo Tavera - Last Filed: 01/04/18 05:20> Results - Vital Signs Recent Vital Signs: Last Vital Signs Temp 98.1 F 01/04/18 04:00 Pulse 76 01/04/18 04:00 Resp 20 01/04/18 04:00 BP 133/80 01/04/18 04:00 Pulse Ox 98 01/04/18 04:00 - Labs Result Diagrams: 01/03/18 22:26 01/03/18 22:26 Labs: Laboratory Results - last 24 hr 01/03/18 01/03/18 01/03/18 22:26 22:26 23:07 WBC 5.8 RBC 3.51 L Hgb 11.0 L Hct 32.5 L MCV 92.4 MCH 31.5 H MCHC 34.0 RDW 14.3 Plt Count 200 D MPV 8.8 Neut % (Auto) 51.8 Lymph % (Auto) 29.2 [place] % (Auto) 13.3 H Eos % (Auto) 4.5 H Baso % (Auto) 1.2 Neut # (Auto) 3.0 Lymph # (Auto) 1.7 [place] # (Auto) 0.8 Eos # (Auto) 0.3 Baso # (Auto) 0.1 Sodium 136 Potassium 5.1 Chloride 102 Carbon Dioxide 22 Anion Gap 17 BUN 17 Creatinine 0.6 L Est GFR ( Amer) > 60 Est GFR (Non-Af Amer) > 60 POC Glucose (mg/dL) Random Glucose 115 H Calcium 8.6 Total Bilirubin 1.6 H AST 106 H D ALT 42 Alkaline Phosphatase 117 Total Creatine Kinase 333 H CK-MB (Mass) 2.07 Troponin I 0.0260 NT-Pro-B Natriuret Pep 123 Total Protein 8.4 H Albumin 4.2 Globulin 4.2 H Albumin/Globulin Ratio 1.0 Lipase 250 Urine Color Yellow Urine Clarity Clear Urine pH 6.0 Ur Specific [place] 1.015 Urine Protein Negative Urine Glucose (UA) Normal Urine Ketones Negative Urine Blood Negative Urine Nitrate Negative Urine Bilirubin Negative Urine Urobilinogen 2.0 Ur Leukocyte Esterase Neg Urine WBC (Auto) < 1 Urine RBC (Auto) < 1 Ur Transition Epith Cell < 1 Urine Bacteria Rare Urine Opiates Screen Urine Methadone Screen Ur Barbiturates Screen Ur Phencyclidine Scrn Ur Amphetamines Screen U Benzodiazepines Scrn U Oth Cocaine Metabols U Cannabinoids Screen Alcohol, Quantitative < 10 01/03/18 01/03/18 23:07 23:41 WBC RBC Hgb Hct MCV MCH MCHC RDW Plt Count MPV Neut % (Auto) Lymph % (Auto) [place] % (Auto) Eos % (Auto) Baso % (Auto) Neut # (Auto) Lymph # (Auto) [place] # (Auto) Eos # (Auto) Baso # (Auto) Sodium Potassium Chloride Carbon Dioxide Anion Gap BUN Creatinine Est GFR ( Amer) Est GFR (Non-Af Amer) POC Glucose (mg/dL) 109 Random Glucose Calcium Total Bilirubin AST ALT Alkaline Phosphatase Total Creatine Kinase CK-MB (Mass) Troponin I NT-Pro-B Natriuret Pep Total Protein Albumin Globulin Albumin/Globulin Ratio Lipase Urine Color Urine Clarity Urine pH Ur Specific [place] Urine Protein Urine Glucose (UA) Urine Ketones Urine Blood Urine Nitrate Urine Bilirubin Urine Urobilinogen Ur Leukocyte Esterase Urine WBC (Auto) Urine RBC (Auto) Ur Transition Epith Cell Urine Bacteria Urine Opiates Screen Negative Urine Methadone Screen Negative Ur Barbiturates Screen Negative Ur Phencyclidine Scrn Negative Ur Amphetamines Screen Negative U Benzodiazepines Scrn Negative U Oth Cocaine Metabols Negative U Cannabinoids Screen Negative Alcohol, Quantitative Assessment & Plan - Date & Time Date: 01/04/18 (I have seen and examined the patient. I agree with the findings and plan of care as documented by Dr. Serrato. Patient with chest pain. ROMIx3 with EKG. Aspirin and Statin. Monitor for acute changes.) Time: 05:20 Attending/Attestation - Attestation I have personally seen and examined this patient.: Yes I have fully participated in the care of the patient.: Yes I have reviewed all pertinent clinical information: Yes
[2018-01-04] MEDS ORDERED: Pneumococcal 23-Valent Vaccine IM ONE (02:55)
[2018-01-04 05:45] LABS: BASO # 0.1 K/uL (0.0-0.2); BASO % 1.3 % (0.0-2.0); EOS # 0.3 K/uL (0.0-0.7); EOS % 5.8 % (0.0-4.0); HEMOGLOBIN 11.5 g/dL (12.0-18.0); LYMPH # 1.7 K/uL (1.0-4.3); LYMPH % 33.2 % (20.0-40.0); MEAN CELL VOLUME 93.1 fL (80.0-94.0); MEAN CORPUSCULAR HEMOGLOBIN 31.8 pg (27.0-31.0); MEAN CORPUSCULAR HGB CONC 34.2 g/dL (33.0-37.0); MEAN PLATELET VOLUME 8.8 fL (7.2-11.7); MONO # 0.8 K/uL (0.0-0.8); NEUT # 2.3 K/uL (1.8-7.0); NEUT % 44.7 % (50.0-75.0); NRBC % 0.1 % (0.0-2.0); RBC 3.63 Mil/uL (4.40-5.90); RED CELL DISTRIBUTION WIDTH 14.4 % (11.5-14.5); WHITE BLOOD COUNT 5.1 K/uL (4.8-10.8)
[2018-01-04 06:03] LABS: CK-MB 1.4 ng/mL (0.0-3.38); TROPONIN I 0.015 ng/mL (0.00-0.120)
[2018-01-04 06:36] LABS: ALBUMIN 3.8 g/dL (3.5-5.0); ALT/SGPT 61 U/L (21-72); AST/SGOT 72 U/L (17-59); BLOOD UREA NITROGEN 13 mg/dL (9-20); CALCIUM 8.9 mg/dl (8.6-10.4); GFR AFRICAN-AMERICAN > 60; GFR NON-AFRICAN AMERICAN > 60
--- NOTE | 2018-01-04 07:07 | RAD ---
Chest x-ray single frontal view History: Chest pain. Comparison: 07/05/2017 Findings: No focal infiltrate or effusion. Heart size within normal limits. Impression: No focal infiltrate or effusion.
[2018-01-04] MEDS: Pantoprazole 40 mg EC Tab PO SCH (09:40)
[2018-01-04] MEDS: Enoxaparin 40 mg Syringe SC SCH (09:41)
[2018-01-04 11:29] LABS: CK-MB 1.28 ng/mL (0.0-3.38); TROPONIN I 0.02 ng/mL (0.00-0.120)
--- NOTE | 2018-01-04 11:31 | CP.PCM.PN ---
<Kellie Burnette - Last Filed: 01/04/18 17:45> Subjective - Date & Time of Evaluation Date of Evaluation: 01/04/18 Time of Evaluation: 07:00 - Subjective Subjective: PGY1- Medicine Note for Dr. Doyle Patient seen and examined at bedside and in no acute distress. Patient says his chest pain is much better and it only bothers him a tiny bit. Patient admits to having some shortness of breath which he says is chronic. Patient admits to having visual and auditory hallucinations last of which were yesterday. He was hearing music and voices telling him that they were going to hurt him. He says he has had these issues forever, but has never seen a psychiatrist or been on any medications for it. Patient denies abdominal pain, nausea, vomiting, constipation, diarrhea. Objective - Vital Signs/Intake and Output Vital Signs (last 24 hours): Temp Pulse Resp BP Pulse Ox 98.1 F 71 20 118/74 100 01/04/18 07:35 01/04/18 08:00 01/04/18 07:35 01/04/18 07:35 01/04/18 07:35 Intake and Output: 01/04/18 01/04/18 06:59 18:59 Intake Total 110 Output Total 400 Balance -290 - Medications Medications: Current Medications Aspirin (Ecotrin) 81 mg PO DAILY [facility] Last Admin: 01/04/18 09:41 Dose: 81 mg Enoxaparin Sodium (Lovenox) 40 mg SC DAILY [facility] Last Admin: 01/04/18 09:41 Dose: 40 mg Ibuprofen (Motrin Tab) 400 mg PO Q6 PRN PRN Reason: Pain, Mild (1-3) Last Admin: 01/04/18 09:40 Dose: 400 mg Pantoprazole Sodium (Protonix Ec Tab) 40 mg PO DAILY [facility] Last Admin: 01/04/18 09:40 Dose: 40 mg Rosuvastatin Calcium (Crestor) 5 mg PO HS [facility] - Labs Labs: 01/04/18 05:30 01/04/18 05:30 - Constitutional Appears: Non-toxic, No Acute Distress - Head Exam Head Exam: ATRAUMATIC, NORMAL INSPECTION, NORMOCEPHALIC - Eye Exam Eye Exam: EOMI, Normal appearance - ENT Exam ENT Exam: Mucous Membranes Moist - Respiratory Exam Respiratory Exam: Clear to Ausculation Bilateral, NORMAL BREATHING PATTERN. absent: Rales, Rhonchi, Wheezes, Respiratory Distress, Stridor - Cardiovascular Exam Cardiovascular Exam: REGULAR RHYTHM, RRR, +S1, +S2 Additional comments: chest wall tenderness to palpation - GI/Abdominal Exam GI & Abdominal Exam: Soft, Normal Bowel Sounds. absent: Tenderness - Extremities Exam Extremities Exam: Full ROM, Normal Inspection Additional comments: full range of motion in plantarflexion and dorsiflexion. Able to ambulate. - Neurological Exam Neurological Exam: Alert, Awake, Oriented x3 - Psychiatric Exam Psychiatric exam: Normal Affect, Normal Mood - Skin Skin Exam: Intact, Normal Color, Warm Assessment and Plan - Assessment and Plan (Free Text) Assessment: Chest pain r/o ACS -EKG NSR 75bpm, no axis deviation, no acute ST changes -CXR no active disease -Troponin negative x3 -Repeat am EKG- NSR @ 67bpm -ASA 81mg -Crestor 5mg -Motrin 400mg prn Right ankle sprain -Improving, full ROM, ambulating -Motrin 400mg prn Auditory and Visual Hallucinations TSH: 3.19 Free T4: 1.[address]: no acute intracranial abnormality, mild global parenchymal volume loss , advanced for patient's age. Psych, Dr. Marcos consulted, help appreciated Patient accepted to psych Constipation -Colace 100mg History of alcohol abuse -UDS negative Prophylactic measures -Protonix -Lovenox Dispo: Patient cleared from medicine standpoint. Patient will be transferred to Dr. Marcos to psych floor. <Cresencio Doyle - Last Filed: 01/04/18 20:09> Objective - Vital Signs/Intake and Output Vital Signs (last 24 hours): Temp Pulse Resp BP Pulse Ox 99.2 F 86 18 133/83 98 01/04/18 16:41 01/04/18 16:41 01/04/18 16:41 01/04/18 16:41 01/04/18 16:41 Intake and Output: 01/04/18 01/05/18 18:59 06:59 Intake Total 400 Balance 400 - Medications Medications: Current Medications Aspirin (Ecotrin) 81 mg PO DAILY [facility] Last Admin: 01/04/18 09:41 Dose: 81 mg Enoxaparin Sodium (Lovenox) 40 mg SC DAILY [facility] Last Admin: 01/04/18 09:41 Dose: 40 mg Ibuprofen (Motrin Tab) 400 mg PO Q6 PRN PRN Reason: Pain, Mild (1-3) Last Admin: 01/04/18 09:40 Dose: 400 mg Pantoprazole Sodium (Protonix Ec Tab) 40 mg PO DAILY [facility] Last Admin: 01/04/18 09:40 Dose: 40 mg Rosuvastatin Calcium (Crestor) 5 mg PO HS [facility] - Labs Labs: 01/04/18 05:30 01/04/18 05:30 Attending/Attestation - Attestation I have personally seen and examined this patient.: Yes I have fully participated in the care of the patient.: Yes I have reviewed all pertinent clinical information, including history, physical exam and plan: Yes Notes (Text): 01/04/18 20:08 Patient was seen and examined at 2:00 PM Exam, assessment and plan were gone over with the resident. Cresencio Doyle D.O.
--- NOTE | 2018-01-04 12:41 | PCM.PSYCH ---
Initial Psychiatric Evaluation - Initial Psychiatric Evaluation Type of Admission: Voluntary Legal Status: Capacity Chief Complaint (in patient's own words): I am hearing voices.' ' History of Present Illness and Precipitating Events: Pt is a 42 year old male with history of alcohol abuse presents to the ED today complaining of chest pain. Patient reports his chest pain is located on his left chest. Pt reports history of drinking more than 5-10 bers daily. Yesterday he consumed more than 5 beers, developed chest pain so came to the hospital to get help. Today pt was consulted. Pt remained somewhat disorganized and internally preoccupied. He reports of hearing voices and seeing shadows. Patient paranoid and delusional. Patient reports withdrawal symptoms including nausea, headaches, and sweating. He reports depressed mood and feelings of hopelessness and helplessness. Patient remained isolated, confined and withdrawn. He denies any DTs in the past. PMH Chest pain Current Medications: Active Medications Generic Name Dose Route Start Last Admin Trade Name Freq PRN Reason Stop Dose Admin Aspirin 81 mg 01/04/18 10:00 01/04/18 09:41 Ecotrin PO 81 mg DAILY [facility] Administration Enoxaparin Sodium 40 mg 01/04/18 10:00 01/04/18 09:41 Lovenox SC 40 mg DAILY [facility] Administration Ibuprofen 400 mg 01/04/18 01:38 01/04/18 09:40 Motrin Tab PO 400 mg Q6 PRN Administration Pain, Mild (1-3) Pantoprazole Sodium 40 mg 01/04/18 10:00 01/04/18 09:40 Protonix Ec Tab PO 40 mg DAILY [facility] Administration Rosuvastatin Calcium 5 mg 01/04/18 22:00 Crestor PO HS [facility] Past Psychiatric History - Past Psychiatric History Previous Treatment History: Inpatient Pertinent Medical Hx (Current Medical&Sleep Prob, Allergies): Allergies Allergy/AdvReac Type Severity Reaction Status Date / Time No Known Allergies Allergy Verified 01/03/18 21:29 No Known Home Med 04/23/17 Review of Systems - Review of Systems All systems: reviewed and no additional remarkable complaints except - Psychiatric Psychiatric: Anxiety, Irritability, Suicidal Ideation Mental Status Examination - Personal Presentation Personal Presentation: Looks stated age - Affect Affect: Constricted, Depressed - Motor Activity Motor Activity: Calm - Reliability in Providing Information Reliability in Providing Information: Fair - Speech Speech: Organized - Mood Mood: Depressed, Anxious - Formal Thought Process Formal Thought Process: Hallucinations, Delusions, Paranoia - Hallucinations/Delusions Hallucinations: Visual, Auditory Delusions: Persecution - Obsessions/Compulsions Obsessions: No Compulsions: No - Cognitive Functions Orientation: Person, Place, Situation, Time Sensorium: Alert Attention/Concentration: Attentive Abstract Thinking: Castaner Estimate of Intelligence: Below average Judgement: Imparied, as evidence by: Poor judgement, Imparied, as evidence by: Lack of insight into illness - Risk Risk: Withdrawal, Diminished functioning - Limitations Limitations: Living alone DSM 5 DX - DSM 5 DSM 5 Diagnosis: Major depressive disorder recurrent severe with psychotic features Alcohol use disorder severe Alcohol withdrawal uncomplicated - Recommended/Plan of Treatment Treatment Recommendations and Plan of Treatment: Major depressive disorder recurrent severe with psychotic features CBT Psychoeducation Supportive therapy, group therapy, individual therapy Trazodone 50 mg by mouth daily at bedtime Alcohol use disorder severe CBT Psychoeducation Supportive therapy, individual therapy Use [place] for abstinence Alcohol withdrawal uncomplicated CBT Psychoeducation Supportive therapy, individual therapy Librium when necessary Librium taper Folic acid/thiamine/multivitamin - Smoking Cessation Smoking Cessation Initiated: No
--- NOTE | 2018-01-04 13:19 | CT ---
PROCEDURE: CT HEAD WITHOUT CONTRAST. HISTORY: auditory and visual hallucinations COMPARISON: 07/06/2017. TECHNIQUE: Axial computed tomography images were obtained through the head/brain without intravenous contrast. Radiation dose: Total exam DLP = 982.82 mGy-cm. This CT exam was performed using one or more of the following dose reduction techniques: Automated exposure control, adjustment of the mA and/or kV according to patient size, and/or use of iterative reconstruction technique. FINDINGS: HEMORRHAGE: No intracranial hemorrhage. BRAIN: Vazquez-white matter differentiation is preserved. There is no mass, mass effect or abnormal extra-axial fluid collection. There is no territorial infarction. VENTRICLES: There is mild global parenchymal volume loss and proportionate enlargement of the ventricles and cortical sulci. CALVARIUM: The skull base and calvarium are. PARANASAL SINUSES: There is mild mucosal thickening in the left maxillary sinus. The remaining included paranasal sinuses are predominantly clear. MASTOID AIR CELLS: Predominantly clear. OTHER FINDINGS: None. Normal IMPRESSION: No acute intracranial abnormality. Mild global parenchymal volume loss, advanced for the patient's age.
--- NOTE | 2018-01-04 19:14 | PCM.BM ---
<Luci Campos - Last Filed: 01/04/18 19:12> Treatment Plan Problems - Problems identified on initial assessmt Depression Date Initiated: 01/04/18 Time Initiated: 19:12 Assessment reference: NA Status: Active Alcohol Abuse Date Initiated: 01/04/18 Time Initiated: 19:12 Assessment reference: NA Status: Active Treatment assets and liabiliti Patient Assests: cooperative, ADL independent, negotiates basic needs, cognitively intact Patient Liabilities: live alone (Homeless), financial problems, poor support system, substance abuse (Hx of ETOH), medical problems (HTN), language/speech ( [place] speaking) - Milieu Protocol Maintain good personal hygiene: daily Encourage regular showers, daily Remind patient to perform daily oral care, daily Assist patient to perform ADL's (Self) Conduct patient checks and document Observation sheet: Q15 minutes (Safety) Maintain personal safety: every shift Educate patient to report safety concerns to staff, every shift Monitor environment for contraband/sharps Medication safety: Monitor for expected outcome, potential side effects: every shift, Assess barriers to learning: every shift, Assess readiness for medication education: every shift <Dian Garner - Last Filed: 01/07/18 16:00> Family Contact Family involvement: Patient does not wish Family/SO involvement Family contact: Patient declines to allow family contact at present - Goals for Treatment Patient goals for treatment: "I want to go to an outpatient program." Discharge/Continuing Care - Education Needs Education Needs: Patient Medication, Patient Coping Skills, Patient Aftercare Safety Plan - Discharge Discharge Criteria: Free of Suicidal thoughts, Free of paranoid thoughts, Normal sleep pattern, Ability to care for self, No longer exhibiting s/s of withdrawal, Reduction of target symptoms Discharge to:: Home, With Family - Treatment Team Participation Discussed with Family/SO: No Was Patient/Family/SO present at Treatment Team Meeting: Yes <Naila Marcos - Last Filed: 01/11/18 23:04> - Diagnosis (1) Depression Status: Acute Interventions: 01/11/18 23:04 * Assess/adjust medications daily and /or as needed * See patient on an individual basis 7x/week to assess symptoms of depression * Monitor for side effects & effectiveness of medications * (2) Alcohol abuse Status: Acute Interventions: 01/11/18 23:04 * Assess 7x/week regarding severity of withdrawal * Educate regarding risks, benefits, side effects and alternatives of medications * Use Motivational Interviewing for abstinence * Use CBT for relapse prevention * Medication management for withdrawal symptoms * Encourage medication assisted treatment *
--- NOTE | 2018-01-04 21:22 | CARD ---
APPROVED REPORT EKG Measurement Heart [id number] <Conclusion> Normal sinus rhythm Normal ECG
[2018-01-04] MEDS ORDERED: Aluminum Hydroxide/Magnesium Hydroxide Susp (30 mL) PO PRN (22:17)
[2018-01-05] MEDS: Pantoprazole 40 mg EC Tab PO SCH (09:42)
[2018-01-05] MEDS: Enoxaparin 40 mg Syringe SC SCH (09:42)
[2018-01-05] MEDS: Multiple Vitamins Tab PO SCH (09:42)
--- NOTE | 2018-01-05 13:05 | PCM.PYCHPN ---
Psychiatric Progress Note - Psychiatric Progress Note Patient seen today, length of contact: 16 min Patient Chief Complaint: I am hearing voices.' ' Problems Identified/Issues Discussed: Patient seen and evaluated, chart reviewed and discussed with the nurse. As per the staff, patient still appears isolated, depressed and withdrawn. Patient still reports depressed mood and reports at times feelings of hopelessness or helplessness. He reports withdrawal symptoms including anxiety, headaches and sweating. He still reports auditory and visual hallucinations. He needs some more time for stabilization. He is compliant with his medications and denies any side effects. Supportive therapy and psychoeducation were given. Medication Change: Yes Medical Record Reviewed: Yes Mental Status Examination - Cognitive Function Orientation: Person, Place, Situation, Time Memory: Intact Attention: WNL Concentration: Poor Association: Loose Fund of Knowledge: WNL - Mood Mood: Depressed, Anxious - Affect Affect: Constricted, Depressed - Formal Thought Process Formal Thought Process: Hallucinations, Delusions, Paranoia - Suicidal Ideation Suicidal Ideation: No - Homicidal Ideation Homicidal Ideation: No Goal/Treatment Plan - Goal/Treatment Plan Need for Continued Stay: Severe depression anxiety, Severe functional impairment Progress Toward Problem(s) and Goals/Treatment Plan: Major depressive disorder recurrent severe with psychotic features CBT Psychoeducation Supportive therapy, group therapy, individual therapy Trazodone 50 mg by mouth daily at bedtime Risperdal 1 gm PO QHS Remeron 15 mg PO QHS Alcohol use disorder severe CBT Psychoeducation Supportive therapy, individual therapy Use [place] for abstinence Alcohol withdrawal uncomplicated CBT Psychoeducation Supportive therapy, individual therapy Librium when necessary Librium taper Folic acid/thiamine/multivitamin - Smoking Cessation Smoking Cessation Initiated: No
[2018-01-06] MEDS: Pantoprazole 40 mg EC Tab PO SCH (10:13)
[2018-01-06] MEDS: Multiple Vitamins Tab PO SCH (10:13)
--- NOTE | 2018-01-06 10:45 | CARD ---
APPROVED REPORT EKG Measurement Heart [id number] <Conclusion> Normal sinus rhythm Minimal voltage criteria for LVH, may be normal variant Early repolarization Borderline ECG
--- NOTE | 2018-01-06 10:50 | PCM.PYCHPN ---
Psychiatric Progress Note - Psychiatric Progress Note Patient seen today, length of contact: 16 min Patient Chief Complaint: I am hearing voices.' ' Problems Identified/Issues Discussed: Patient seen and evaluated, chart reviewed and discussed with the nurse. Patient still reports depressed mood and reports at times feelings of hopelessness or helplessness. As per the staff, patient still appears isolated, depressed and withdrawn. He appears internally preoccupied. He reports withdrawal symptoms including anxiety, headaches and sweating. He still reports auditory and visual hallucinations. He needs some more time for stabilization. He is compliant with his medications and denies any side effects. Supportive therapy and psychoeducation were given. Medication Change: Yes (increase Remeron, start gabapentin, start sertraine) Medical Record Reviewed: Yes Mental Status Examination - Cognitive Function Orientation: Person, Place, Situation, Time Memory: Intact Attention: WNL Concentration: Poor Association: Loose Fund of Knowledge: WNL - Mood Mood: Depressed, Anxious - Affect Affect: Constricted, Depressed - Formal Thought Process Formal Thought Process: Hallucinations, Delusions, Paranoia - Suicidal Ideation Suicidal Ideation: No - Homicidal Ideation Homicidal Ideation: No Goal/Treatment Plan - Goal/Treatment Plan Need for Continued Stay: Severe depression anxiety, Severe functional impairment Progress Toward Problem(s) and Goals/Treatment Plan: Major depressive disorder recurrent severe with psychotic features CBT Psychoeducation Supportive therapy, group therapy, individual therapy Trazodone 50 mg by mouth daily at bedtime Risperdal 1 gm PO QHS Remeron 30 mg PO QHS Sertraline 50 mg PO QHS Alcohol use disorder severe CBT Psychoeducation Supportive therapy, individual therapy Use [place] for abstinence Alcohol withdrawal uncomplicated CBT Psychoeducation Supportive therapy, individual therapy Librium when necessary Librium taper Folic acid/thiamine/multivitamin
[2018-01-07] MEDS: Pantoprazole 40 mg EC Tab PO SCH (09:03)
[2018-01-07] MEDS: Multiple Vitamins Tab PO SCH (09:03)
--- NOTE | 2018-01-07 10:15 | PCM.PYCHPN ---
Psychiatric Progress Note - Psychiatric Progress Note Patient seen today, length of contact: 16 min Patient Chief Complaint: I am hearing voices.' ' Problems Identified/Issues Discussed: Patient seen and evaluated, chart reviewed and discussed with the nurse. Patient reports improvement in her depressed mood and reports improvement in the feelings of hopelessness or helplessness. As per the staff, patient still appears isolated, depressed and withdrawn. He reports withdrawal symptoms including anxiety, headaches and sweating. He reports improvement in the auditory and visual hallucinations. He needs some more time for stabilization. He is compliant with his medications and denies any side effects. Supportive therapy and psychoeducation were given. Medication Change: Yes (increase Remeron, start gabapentin, start sertraine) Medical Record Reviewed: Yes Mental Status Examination - Cognitive Function Orientation: Person, Place, Situation, Time Memory: Intact Attention: WNL Concentration: Poor Association: Loose Fund of Knowledge: WNL - Mood Mood: Depressed, Anxious - Affect Affect: Constricted, Depressed - Formal Thought Process Formal Thought Process: Hallucinations, Delusions, Paranoia - Suicidal Ideation Suicidal Ideation: No - Homicidal Ideation Homicidal Ideation: No Goal/Treatment Plan - Goal/Treatment Plan Need for Continued Stay: Severe depression anxiety, Severe functional impairment Progress Toward Problem(s) and Goals/Treatment Plan: Major depressive disorder recurrent severe with psychotic features CBT Psychoeducation Supportive therapy, group therapy, individual therapy Trazodone 50 mg by mouth daily at bedtime Risperdal 1 gm PO QHS Remeron 30 mg PO QHS Sertraline 50 mg PO QHS Alcohol use disorder severe CBT Psychoeducation Supportive therapy, individual therapy Use [place] for abstinence Alcohol withdrawal uncomplicated CBT Psychoeducation Supportive therapy, individual therapy Librium when necessary Librium taper Folic acid/thiamine/multivitamin
[2018-01-08 06:48] VITALS: O2SAT 98
[2018-01-08] MEDS: Multiple Vitamins Tab PO SCH (10:15)
[2018-01-08] MEDS: Pantoprazole 40 mg EC Tab PO SCH (12:15)
[2018-01-09] MEDS: Multiple Vitamins Tab PO SCH (10:22)
[2018-01-09] MEDS: Pantoprazole 40 mg EC Tab PO SCH (10:22)
--- NOTE | 2018-01-09 22:51 | PCM.PYCHPN ---
Psychiatric Progress Note - Psychiatric Progress Note Patient seen today, length of contact: 16 min Patient Chief Complaint: I am feeling much better.' ' Problems Identified/Issues Discussed: Patient seen and evaluated, chart reviewed and discussed with the nurse. Patient reports improvement in his mood and reports improvement in the auditory hallucinations. He needs more time for stabilization. He is compliant with his medications and denies any side effects. Supportive therapy and psychoeducation were given. Medication Change: Yes (increase Remeron, start gabapentin, start sertraine) Medical Record Reviewed: Yes Mental Status Examination - Cognitive Function Orientation: Person, Place, Situation, Time Memory: Intact Attention: WNL Concentration: WNL Association: WNL Fund of Knowledge: WNL - Mood Mood: Depressed, Anxious - Affect Affect: Constricted, Depressed - Formal Thought Process Formal Thought Process: No Impairment - Suicidal Ideation Suicidal Ideation: No - Homicidal Ideation Homicidal Ideation: No Goal/Treatment Plan - Goal/Treatment Plan Need for Continued Stay: Severe depression anxiety, Severe functional impairment Progress Toward Problem(s) and Goals/Treatment Plan: Major depressive disorder recurrent severe with psychotic features CBT Psychoeducation Supportive therapy, group therapy, individual therapy Trazodone 50 mg by mouth daily at bedtime Risperdal 2 gm PO QHS Remeron 30 mg PO QHS Sertraline 100 mg PO QHS Alcohol use disorder severe CBT Psychoeducation Supportive therapy, individual therapy Use [place] for abstinence Alcohol withdrawal uncomplicated CBT Psychoeducation Supportive therapy, individual therapy Librium when necessary Librium taper Folic acid/thiamine/multivitamin - Smoking Cessation Smoking Cessation Initiated: No
[2018-01-10 06:18] VITALS: BP 109/66; PULSE 86; RESP 18; TEMP 97.9
[2018-01-10] MEDS: Pantoprazole 40 mg EC Tab PO SCH (09:09)
[2018-01-10] MEDS: Multiple Vitamins Tab PO SCH (09:09)
--- NOTE | 2018-01-10 09:54 | PCM.PYCHDC ---
Mental Status Examination - Mental Status Examination Orientation: Person, Place, Situation, Time Memory: Intact Mood: Neutral Affect: Constricted Speech: Soft Attention: WNL Concentration: WNL Association: WNL Fund of Knowledge: WNL Formal Thought Process: No Impairment Description of patient's judgement and insight: good, fair Psychotic Thoughts and Behaviors: denies any AVH Suicidal Ideation: No Current Homicidal Ideation?: No Discharge Summary - Discharge Note Reason for Hospitalization: Pt is a 42 year old male with history of alcohol abuse presents to the ED today complaining of chest pain. Patient reports his chest pain is located on his left chest. Pt reports history of drinking more than 5-10 bers daily. Yesterday he consumed more than 5 beers, developed chest pain so came to the hospital to get help. Today pt was consulted. Pt remained somewhat disorganized and internally preoccupied. He reports of hearing voices and seeing shadows. Patient paranoid and delusional. Patient reports withdrawal symptoms including nausea, headaches, and sweating. He reports depressed mood and feelings of hopelessness and helplessness. Patient remained isolated, confined and withdrawn. He denies any DTs in the past. Consultations:: List each consultation separately and include: 1. Reason for request. 2. Findings. 3. Follow-up Summary of Hospital Course include:: 1. Description of specific treatment plan utilized for patients during their course of treatmen. 2. Summarize the time- course for resolution of acute symptoms and/or regressed behaviors. 3. Describe issues identified and worked on during hospitalization. 4. Describe medication utilized. 5. Describe medical problems identified and treated. 6. Reassessment of suicide risk Summary of Hospital Course: During the course of his stay, patient (pt) started progressively improving and he no longer remained irritable, depressed, paranoid and suicidal. His mood and anxiety symptoms were improved and he started attending groups and meetings and started socializing. Patient denied any feelings of hopelessness, helplessness, and worthlessness, denied any problem with the sleep or appetite, denied suicidal ideation or homicidal ideation. Pt denied any auditory or visual hallucinations. He denied any withdrawal symptoms. Some changes were made in his current medications and patient was discharged on following medications. He tolerated these medications very well and denied any side effects. He was discharged to the [facility]. - Final Diagnosis (DSM 5) Condition upon Discharge: STABLE DSM 5: Major depressive disorder recurrent severe with psychotic features Alcohol use disorder severe Alcohol withdrawal uncomplicated Disposition: HOME/ ROUTINE Follow-up Treatment Plan: Education: Pt was educated and counseled about the risks and benefits of taking and not taking medications. Pt was educated and counseled about the risks of drinking and abusing drugs. Pt was educated and counseled to go to the ER or call 911 if pt develop suicidal ideation or homicidal ideation, worsening of symptoms or severe side effects of the meds. Prescriptions/Medication Reconciliation: Benztropine [Cogentin] 1 mg PO HS #30 tab Mirtazapine [Remeron] 30 mg PO HS #30 tab risperiDONE [RisperDAL Tab] 2 mg PO HS #30 tab Sertraline [Zoloft] 100 mg PO DAILY #30 tab traZODone [Desyrel] 50 mg PO HS PRN #30 tab PRN Reason: Insomnia - Smoking Cessation Smoking Cessation Medication prescribed: No - Antipsychotic Medications Pt discharged on 2 or more routine antipsychotic medications: No
== END 2018-01-10 11:10 | disposition home or self-care (01) | DRG 430 ==
LOC: EDBD → C.ER 21:13 → C.6T 01-04 00:41 → C.5E 01-04 14:56 → OBSVTOIN 01-04 14:56
PROVIDERS: ADMIT Psychiatry & Neurology Psychiatry; ATTEND Psychiatry & Neurology Psychiatry
PROC: HZ2ZZZZ Detoxification Services for Substance Abuse Treatment (ICD-10-PCS; principal; 2018-01-04)
DX: F33.3 Major depressive disorder, recurrent, severe with psychotic symptoms (principal); F10.230 Alcohol dependence with withdrawal, uncomplicated; F41.9 Anxiety disorder, unspecified; I10 Essential (primary) hypertension; K59.00 Constipation, unspecified; Y90.9 Presence of alcohol in blood, level not specified